=== PATIENT | female | born 1980 | race Caucasian/White ===

== ENCOUNTER 2019-11-29 16:22 | Emergency (ER) | payer MEDICAID, SELFPAY ==
--- NOTE | 2019-11-29 16:27 | W.ED.HA ---
HPI - Headache General: Chief Complaint: Headache Stated Complaint: HEADACHE W/MEMORY LOSS Time Seen by Provider: 11/29/19 16:24 Source: patient and EMS Mode of arrival: EMS Limitations: no limitations History of Present Illness: HPI Narrative: 38-year-old female states she has a history of migraines. Patient states she went to [facility] at 3:00 and has a period of about 5 to 10 minutes where she does not member what she did. She states she now has a headache that is like her migraines. She denies any memory issues currently. She denies any vision issues and denies any other neuro deficits. Patient states she has not had this happen before with her migraines. Denies any vomiting. She denies any fever. MD elicited complaint: headache and migraine Associated symptoms: Deny chest pain, fever(s), nausea, rash or vomiting Review of Systems Const: Denies: fever(s), chills, body aches or change in appetite Eyes: Denies: blurry vision or eye discomfort ENMT: Denies: throat pain or dental pain Card: Denies: chest pain Resp: Denies: dyspnea GI: Denies: abdominal pain, nausea, vomiting or diarrhea : Denies: dysuria Musc: Denies: neck pain or back pain Skin/Breast: Denies: rash Neuro: Reports: headache(s) Psych: Denies: depression Edilberto/Lymph: Denies: easy bruising All/Imm: Denies: urticaria Physical Exam Const: COMMON NORMALS: no acute distress, patient oriented x3 and healthy appearing HENMT: COMMON NORMALS: normocephalic and atraumatic HEAD & SCALP: normocephalic and atraumatic Eye: COMMON NORMALS: Equal, round and reactive pupils present and EOMs intact bilaterally PUPIL: Yes Equal, round and reactive pupils present Neck/C-Spine: COMMON NORMALS: full ROM and supple Chest: COMMONS NORMALS: normal inspection of the chest and normal palpation of entire chest wall Resp: COMMON NORMALS: normal respiratory effort, No retractions, No use of accessory muscles and clear to auscultation bilaterally AUSCULTATION: clear to auscultation bilaterally Cardio: COMMON NORMALS: regular rate, regular rhythm and No murmurs present (Cardio) RATE: regular rate RHYTHM: regular rhythm GI: COMMON NORMALS: Normal to inspection, nondistended, normoactive bowel sounds present, Soft to palpation, non-tender and no masses PALPATION: Yes Soft to palpation Extremity: COMMON NORMALS: normal to inspection and full ROM Neuro: COMMON NORMALS: patient oriented x3, moves all extremities and no focal motor deficits Psych: COMMON NORMALS: mental status grossly normal, Normal thought process present and cooperative THOUGHT PROCESS: Normal thought process present Skin: COMMON NORMALS: no rashes or lesions noted and no wounds GENERAL SKIN EXAM: no rashes or lesions noted Course Vital Signs: Vital signs: Vital Signs Temperature 98.6 F 11/29/19 16:31 Pulse Rate 60 11/29/19 16:36 Respiratory Rate 16 11/29/19 16:36 Blood Pressure 106/64 11/29/19 16:31 Pulse Oximetry 99 11/29/19 16:36 MDM - Headache MDM Narrative: Medical decision making narrative: 38-year-old presents here with headache that is likely a migraine headache. Her headache is much improved here and resolved after Reglan and Benadryl. Patient's head CT here is normal and she is no signs of subarachnoid hemorrhage. Patient's memory loss is likely or from her headache. She is stable for discharge and return if worsening. She is back to her baseline. Imaging Data^: CT Head: Attestation: I personally reviewed and interpreted this imaging study as follows: Radiologist's impression: [address] [address] [address] Scan Report Signed Patient: Lucero Martinez Unit #: [id number] : 1980 Age/Sex: 38 / F ADM Date: 11/29/19 Loc: ER Room/Bed: Attending Dr: Ordering Provider/Ordering MD: Kelly Dao MD Date of Service: 11/29/19 Procedure(s): CT head wo con* [id number] Accession Number(s): [id number] Report Number: [id number] PROCEDURE INFORMATION: Exam: CT Head Without Contrast Exam date and time: 11/29/2019 4:28 PM Age: 38 years old Clinical indication: Pain; Headache not specified; Patient HX: C/O new onset FORDE w HX of migraines TECHNIQUE: Imaging protocol: Computed tomography of the head without contrast. Radiation optimization: All CT scans at this facility use at least one of these dose optimization techniques: automated exposure control; mA and/or kV adjustment per patient size (includes targeted exams where dose is matched to clinical indication); or iterative reconstruction. COMPARISON: No relevant prior studies available. RADIATION DOSE METRICS: Total DLP (mGy-cm): 1380.2 FINDINGS: Brain: Normal. No hemorrhage. Unremarkable white matter. No mass effect. Ventricles: Normal. No ventriculomegaly. Bones/joints: Unremarkable. No acute fracture. Sinuses: Mild mucosal thickening in the ethmoid and sphenoid sinuses. Mastoid air cells: Visualized mastoid air cells are well aerated. Soft tissues: Unremarkable. CT/CT head wo con* [id number] IMPRESSION: No intracranial abnormality identified. Discharge Plan Discharge Patient Disposition: Home Clinical Impression: Headache Qualifiers: Headache type: unspecified Headache chronicity pattern: acute headache Intractability: not intractable Qualified Code(s): R51 - Headache Condition: Stable Discharge Orders: Discharge Order (Routine); Ordered 11/29/19 Ordered By: Kelly Dao Referrals: Asif Vargas DO [Primary Care Provider] - 1-3 days Discharge Diet: Advance as tolerated Discharge Activity: Resume usual activity Patient Instructions: Acute Headache (ED) Coding Level of Care Code ED Rn Radiology for Chg Fwd Exam Comprehensive
[2019-11-29 16:31] VITALS: BP 106/64; PULSE 81; RESP 16; TEMP 37; O2SAT 100
[2019-11-29 16:36] VITALS: PULSE 60; RESP 16; O2SAT 99
[2019-11-29] MEDS: metoclopramide 5 mg/mL SDV 2 mL 10 MG IVP (16:50)
[2019-11-29] MEDS: diphenhydrAMINE 50 mg/mL SDV 1mL IVP (16:50)
[2019-11-29] MEDS: ketorolac 30 mg/mL INJ 15 MG IVP (17:14)
[2019-11-29 17:50] VITALS: BP 103/65; PULSE 62; RESP 16; O2SAT 99
== END 2019-11-29 17:57 | disposition home or self-care (01) ==
PROVIDERS: Emergency Provider Emergency Medicine; PCP Family Medicine
DX: R51 Headache (principal)
CPT/HCPCS: 12345; 70450; 96374; 96375; 99283; J1200; J1885; J2765

== ENCOUNTER → 2020-02-05 13:04 | Outpatient (BNVA) | payer MEDICAID, SELFPAY | PROVIDERS: PCP Family Medicine; Visit Provider Nurse Practitioner Family | DX: Z11.59 Encounter for screening for other viral diseases (principal) | CPT/HCPCS: 87635 ==

== ENCOUNTER → 2020-07-02 12:26 | Outpatient (BNVA) | payer MEDICAID, SELFPAY | PROVIDERS: PCP Nurse Practitioner Family; Visit Provider Specialist | DX: R56.9 Unspecified convulsions (principal) | CPT/HCPCS: 95816 ==

== ENCOUNTER 2020-07-24 08:29 | Outpatient (CLI) | payer MEDICAID, SELFPAY ==
--- NOTE | 2020-07-24 08:36 | MR_ITS ---
WS: [id number] MRI BRAIN WITHOUT CONTRAST HISTORY: SEIZURE LIKE ACTIVITY COMPARISON: None available. TECHNIQUE: Diffusion imaging, multiplanar T1, T2 and FLAIR imaging obtained. High-resolution imaging through the temporal bones. No evidence for acute infarct or hemorrhage. Griffiths-white matter differentiation is normal. Symmetric a ppearance of the temporal lobes and hippocampal formations. No mesial temporal sclerosis. Normal appe arance the distribution of the griffiths and white matter. No remote or acute infarcts are volume loss. Ventricles and extra-axial spaces are normal. No inferior displacement of cerebellar tonsils. The sella turcica and pituitary gland are unremarkabl e. Posterior fossa is also unremarkable. Dural venous sinuses and [place] demonstrate no abnormality on this unenhanced studies. Paranasal sinuses: Mild mucoperiosteal thickening maxillary sinuses. Moderate mucoperiosteal thickeni ng in the anterior ethmoid air cells. Mastoid air cells: Normal. Calvarium and scalp: Intact. MR/MR head wo con* [id number] IMPRESSION: 1. Unremarkable noncontrast MRI brain. 2. Mild ethmoid and maxillary sinus disease without air-fluid levels.
== END 2020-07-24 08:30 | disposition home or self-care (01) ==
LOC: RADSHAW 08:33
PROVIDERS: PCP Nurse Practitioner Family; Visit Provider Nurse Practitioner Family
DX: R56.9 Unspecified convulsions (principal); J32.2 Chronic ethmoidal sinusitis; J01.00 Acute maxillary sinusitis, unspecified
CPT/HCPCS: 70551

== ENCOUNTER 2021-04-05 10:23 | Emergency (ER) | payer MEDICAID, SELFPAY ==
[2021-04-05 10:43] VITALS: BP 126/67; PULSE 67; RESP 13; TEMP 36.7; O2SAT 100; BMI 18.6
[2021-04-05 10:47] VITALS: BP 119/74; PULSE 65; RESP 18; O2SAT 100
[2021-04-05 10:48] VITALS: RESP 15
--- NOTE | 2021-04-05 11:12 | ED_ITS ---
HPI - Seizure General: Chief Complaint: Seizure Stated Complaint: SEIZURE Time Seen by Provider: 04/05/21 10:26 History of Present Illness: HPI Narrative: 40-year-old female presents emergency room complaining of of headache as well as seizure-like activity. Yin esteves previously had episodes where they were concerned about seizure and she had a follow-up EEG which was unremarkable had a follow-up on with neurology then in November of this year that time she was complaining of a headache they treated the headache problem she is not had any problems since no recurrence of seizures she was advised not to drive. The headache seemed to precede the episode today. Brief loss of consciousness but no real postictal symptoms. Patient does take Xanax daily. MD complaint: possible seizure Onset (ago): minute(s) Description of Episode: loss of consciousness Witnessed: Yes - by Bystander Trauma: No Seizure History: No Place: Home Associated symptoms: Deny chest pain, chills, confusion, cough, diaphoresis, fever(s), anorexia, malaise, rash, short of breath, syncope or weakness Treatments prior to arrival: none Review of Systems Const: Denies: fever(s), chills, malaise or diaphoresis ENMT: Denies: throat pain, ear or mastoid pain, nasal discharge or nasal congestion Card: Denies: chest pain or syncope Resp: Denies: dyspnea, productive cough or non-productive cough GI: Denies: abdominal pain, nausea, vomiting, hematemesis, coffee ground emesis, diarrhea, constipation, bloating, hematochezia or melena : Denies: flank pain, difficulty voiding, dysuria, urinary frequency or urinary urgency Skin/Breast: Denies: rash or pruritus Neuro: Denies: confusion PFSH ED PFSH: Social History Smoking and tobacco status: current every day smoker Female Reproductive History: Date of last menstrual period: 03/14/21 Physical Exam Const: COMMON NORMALS: no acute distress GENERAL APPEARANCE: cooperative and comfortable ORIENTATION/CONSCIOUSNESS: Yes awake, Yes oriented to person, Yes oriented to place and Yes oriented to time HENMT: COMMON NORMALS: normocephalic, atraumatic and hearing grossly normal bilaterally HEAD & SCALP: normocephalic and atraumatic Neck/C-Spine: COMMON NORMALS: no JVD Resp: COMMON NORMALS: normal respiratory effort, No retractions, No use of accessory muscles and clear to auscultation bilaterally AUSCULTATION: clear to auscultation bilaterally Cardio: COMMON NORMALS: no JVD, regular rate, regular rhythm and No murmurs present (Cardio) RATE: regular rate RHYTHM: regular rhythm GI: COMMON NORMALS: Soft to palpation and No hepatosplenomegaly present AUSCULTATION: Yes normoactive bowel sounds PALPATION: Yes Soft to palpation, No Tenderness to palpation present (GI), No Guarding due to palpation present (GI) and Yes No hepatosplenomegaly present Extremity: COMMON NORMALS: normal to inspection, capillary refill normal, no clubbing, cyanosis or edema, no calf tenderness and no pedal edema Neuro: SENSORIUM/ORIENTATION: Yes oriented to person, Yes oriented to place and Yes oriented to time Skin: COMMON NORMALS: no rashes or lesions noted GENERAL SKIN EXAM: no rashes or lesions noted Course Vital Signs: Vital signs: Vital Signs Temperature 98.0 F 04/05/21 10:43 Pulse Rate 68 04/05/21 14:29 Respiratory Rate 16 04/05/21 14:29 Blood Pressure 106/52 04/05/21 14:29 Pulse Oximetry 98 04/05/21 14:29 MDM - Seizure MDM Narrative: Medical decision making narrative: Migraines seems to be her bigger issue at this point. She did improve with medications. She reports however with elevated consider previous work-up was negative including EEG. I do not think starting her on any antiseizure medication at this point with a normal EEG would be helpful. Recommend that she get back in to see neurology. Discharge home for now no change in medications. Labs reviewed. Lab Data: Labs: Lab Results 04/05/21 04/05/21 11:30 11:30 WBC 6.8 10^3/uL 10^3/ uL (4.0-10.0) RBC 4.29 10^6/uL 10^6 /uL (4.1-5.3) Hgb 13.6 g/dL g/dL (11.5-15.3) Hct 39.7 % % (37.0-47.0) MCV 92.5 fl fl (81-99) MCH 31.7 pg pg (28.0-34.0) MCHC 34.3 g/dL g/dL (30.0-36.0) RDW 13.1 % % (12.1-15.1) Plt Count 280 10^3/cmm 10^3 /cmm (130-400) MPV 9.8 fL fL (7.4-10.4) Neut % (Auto) 84.4 % % Lymph % (Auto) 12.0 % % [place] % (Auto) 2.7 % % Eos % (Auto) 0.3 % % Baso % (Auto) 0.3 % % Neut # (Auto) 5.70 10^3/uL 10^3 /uL (1.8-7.7) Lymph # (Auto) 0.8 10^3/uL 10^3/ uL (0.8-4.8) [place] # (Auto) 0.2 10^3/uL 10^3/ uL (0.2-0.9) Eos # (Auto) 0.0 10^3/uL 10^3/ uL (0.0-0.8) Baso # (Auto) 0.0 10^3/uL 10^3/ uL (0.0-0.1) Nucleated RBC % (a uto) 0 % % Nucleated RBCs # 0.0 /100WBC /100W BC Sodium 138 mmol/L mmol/L (136-145) Potassium 3.9 mmol/L mmol/L (3.5-5.1) Chloride 106 mmol/L mmol/L (98-107) Carbon Dioxide 17 mmol/L L mmol/ L (22-29) Anion Gap 18.9 (5-19) BUN 10 mg/dL mg/dL (6-20) Creatinine 0.6 mg/dL mg/dL (0.5-0.9) GFR Calculation 111.9 mL/min mL/m in (90-130) Glucose 100 mg/dL mg/dL (65-115) Calculated Osmolal ity 285 mOsm/kg mOsm/ kg (285-295) Calcium 8.2 mg/dL L mg/dL (8.5-10.5) Discharge Plan Discharge Patient Disposition: Home Clinical Impression: Migraine, Generalized seizure Condition: Stable Prescriptions: No Action Xanax 1 mg Tablet 1 mg PO Q8H PRN (Reason: Anxiety) RF: 0 Amoxil 875 mg Tablet 875 mg PO BID RF: 0 ibuprofen 200 mg Tablet 400 mg PO Q4H PRN (Reason: Pain) RF: 0 Discharge Orders: Discharge ED (Routine); Ordered 04/05/21 Ordered By: Galo Conte Referrals: Daily Hope FNP [Primary Care Provider] - Patient Instructions: Opioid Safety Activity Restrictions/Additional Instructions: Follow-up with your primary care doctor and with neurology. Coding Level of Care Code ED Music Industry Intern for Sundayg Fwd Exam Comprehensive
[2021-04-05] MEDS: ketorolac 30 mg/mL INJ IVP (11:24)
[2021-04-05] MEDS: promethazine 25 mg/mL SDV 1 mL IM (11:24)
[2021-04-05] MEDS: sodium chloride 0.9% 1,000 ML 999 ML IV (11:24)
[2021-04-05 11:33] LABS: Basophils % 0.3 %; Eosinophils % 0.3 %; Hematocrit 39.7 % (37.0-47.0); Hemoglobin 13.6 g/dL (11.5-15.3); Lymphocytes # 0.8 10^3/uL (0.8-4.8); Mean Corpuscular HGB Conc 34.3 g/dL (30.0-36.0); Mean Corpuscular Hemoglobin 31.7 pg (28.0-34.0); Mean Corpuscular Volume 92.5 fl (81-99); Mean Platelet Volume 9.8 fL (7.4-10.4); Monocytes # 0.2 10^3/uL (0.2-0.9); Monocytes % 2.7 %; Neutrophils % 84.4 %; Nucleated Red Blood Cells % 0 %; Platelet Count 280 10^3/cmm (130-400); Red Blood Count 4.29 10^6/uL (4.1-5.3); Red Cell Distribution Width 13.1 % (12.1-15.1); White Blood Count 6.8 10^3/uL (4.0-10.0)
[2021-04-05 11:57] LABS: Anion Gap 18.9 (5-19); Blood Urea Nitrogen 10 mg/dL (6-20); Calcium 8.2 mg/dL (8.5-10.5); Carbon Dioxide 17 mmol/L (22-29); Chloride 106 mmol/L (98-107); Glomerular Filtration Rate 111.9 mL/min (90-130); Glucose 100 mg/dL (65-115); Osmolality Calculated 285 mOsm/kg (285-295); Potassium 3.9 mmol/L (3.5-5.1); Sodium 138 mmol/L (136-145)
[2021-04-05 12:48] VITALS: BP 101/68; PULSE 70; RESP 19; O2SAT 97
[2021-04-05] MEDS: morphine 4 mg/mL SDV 1 mL IVP (13:41)
[2021-04-05] MEDS: diphenhydrAMINE 50 mg/mL SDV 1mL 25 MG IVP (13:41)
[2021-04-05 14:00] VITALS: BP 106/52; PULSE 68; RESP 16; O2SAT 98
[2021-04-05 14:29] VITALS: BP 106/52; PULSE 68; RESP 16; O2SAT 98
--- NOTE | 2021-04-08 08:03 | PC.SOCIAL ---
Addendum entered by Dee Mason RN 04/08/21 08:13: Patient returned call and this nurse let her know that Neurology clinic will try to move up appt however in order for them to appropriately treat and manage medications to control seizures it is extremely important that she attend her appointments. She indicates she has a friend that is able to transport her and will attend. Addendum entered by Dee Mason RN 04/08/21 08:05: unable to reach patient was planning on educating her on the importance of follow up to assist with medication management to control seizueres however received a message but did not have patient name listed therefore did not leave message. Original Note: ED referral received by Dr Conte for Neurology for Seizures. Sent email this am and per Kae in the clinic pt has an appt scheduled she will reach out to patient and try to get appt moved up however, patient has not shown up for multiple other appointments at this clinic so not sure she will attend.
--- NOTE | 2021-04-08 12:16 | DCPLANNER ---
Addendum entered by Deb Leyva 05/17/21 08:03: Patient had an appointment scheduled for 05.10.21 with neurology - patient did not attend appointment. Original Note: Patient has a follow up appointment scheduled for Monday, May 10, 2021 at 10:[address] Lorenzo. Clinic will call patient with appointment information.
== END 2021-04-05 14:29 | disposition home or self-care (01) ==
PROVIDERS: Emergency Provider Family Medicine; PCP Nurse Practitioner Family
DX: G43.909 Migraine, unspecified, not intractable, without status migrainosus (principal); G40.409 Other generalized epilepsy and epileptic syndromes, not intractable, without status epilepticus
CPT/HCPCS: 80048; 85025; 96361; 96372; 96374; 96375; 99284; J1200; J1885; J2270; J2550; J7030

== ENCOUNTER 2021-05-19 14:01 | Emergency (ER) | payer MEDICAID, SELFPAY ==
[2021-05-19 14:24] VITALS: BP 128/77; PULSE 65; RESP 16; TEMP 36.8; O2SAT 100; BMI 19.8
--- NOTE | 2021-05-19 15:26 | USCV_ITS ---
Lucero Martinez Age: 40 Gender: F : 1980 Exam Date: 05/19/2021 15:49 Ordering Phys: Kae Huerta Technologist: BONNIE [place] [facility] [place]: RT arm swelling and pain x 2-3 days. No known trauma. Hx sezeires x 4 for last 1-2 years. No hx DVT. HISTORY: RT arm swelling and pain x 2-3 days. No known trauma. Hx sezeires x 4 for last 1-2 years. No hx DVT. PROCEDURES: Venous duplex imaging was performed in only the right upper extremity. The following venous structures were evaluated: internal jugular vein, subclavian vein, axillary vein, and brachial veins. In addition, the basilic vein, cephalic vein, radial vein, and ulnar vein were evaluated. Serial compression, augmentation maneuvers, and spectral Doppler flow evaluation were performed. . FINDINGS: Acute DVT is seen, isolated to the RIGHT subclavian, the RIGHT axillary, and the cephalic portion of the RIGHT Basilic tod. These areas are incompressible with no spontaneous or augmented flow. CONCLUSIONS Occlusive Acute DVT RIGHT subclavian, RIGHT axillary, and thrombus in the cephalic vein above the elbow. Remainder of RUE veins are patent. Modesto Kapoor MD (Electronically Signed) Final Date: 20 May 2021 09:40 S
--- NOTE | 2021-05-19 15:49 | ED_ITS ---
Documented by User: DIVINA Alvarado 05/24/21 17:27 HPI - Extremity Problem General: Chief complaint: General Medical Stated complaint: SENT FROM [facility], POSSIBLE BLOOD CLOT IN ARM Time Seen by Provider: 05/19/21 15:37 Source: patient Mode of arrival: ambulatory Limitations: no limitations History of Present Illness: Patient is a 40-year-old female who presents to ED today with complaint of right arm swelling over the past 2 days. She states pain and swelling began abruptly. She has not had any injury or trauma to the extremity. No recent surgeries. No prolonged periods of inactivity. No hormonal medications. She has no history of previous DVTs. No known blood disorder/clotting disorders. Patient states she was sent here from [facility] for blood clot rule out. She does not complain of shortness of breath, difficulty breathing, or chest pains. MD Complaint: extremity pain and extremity swelling Onset (ago): day(s) Pain Consistency: constant Location: right and upper extremity Associated symptoms: Deny chest pain, fever(s) or rash Review of Systems Const: Denies: fever(s), chills, body aches, fatigue or malaise Card: Denies: chest pain, palpitations, irregular heart rhythm, edema, lightheadedness, syncope or pre-syncope Resp: Denies: dyspnea GI: Denies: abdominal pain Musc: Reports: extremity pain and extremity swelling; Denies: neck pain, back pain, joint pain or joint swelling Skin/Breast: Denies: rash Neuro: Denies: headache(s), numbness in extremities, weakness in extremities or sensory changes PFS ED PFSH: Social History Smoking and tobacco status: current every day smoker Female Reproductive History: Date of last menstrual period: 03/14/21 Physical Exam Const: COMMON NORMALS: no acute distress, average body habitus, patient oriented x3, no limitations, healthy appearing, alert and well nourished HENMT: COMMON NORMALS: normocephalic and atraumatic HEAD & SCALP: normocephalic and atraumatic Resp: COMMON NORMALS: normal respiratory effort and clear to auscultation bilaterally AUSCULTATION: clear to auscultation bilaterally Cardio: COMMON NORMALS: regular rate and regular rhythm RATE: regular rate RHYTHM: regular rhythm Extremity: COMMON NORMALS: full ROM and capillary refill normal OTHER: pt has significant swelling to her entire R UE when compared to L; she has normal brachial/radial pulses and normal cap refill; extremity is not cool to the touch; no redness/warmth/cellulitis noted Neuro: COMMON NORMALS: patient oriented x3 SENSORIUM/ORIENTATION: Yes alert Course Consultations: Consultation #1: Dr. Ball-will come evaluate patient; he recommends CT chest/abdomen/pelvis to evaluate for malignancy; possible hem/onc consult once scan has returned Vital Signs: Vital signs: Vital Signs Temperature 98.2 F 05/19/21 14:24 Pulse Rate 74 05/19/21 19:20 Respiratory Rate 18 05/19/21 19:20 Blood Pressure 124/81 05/19/21 19:20 Pulse Oximetry 99 05/19/21 19:20 MDM - Extremity (Nontraumatic) Medical Decision Making Patient has a DVT to her subclavian and axillary veins. Patient has no risk factors for DVT and this is unprovoked. Spoke to Dr. Wright who recommended speaking to hospitalist. I spoke to Dr. Ball who will come evaluate patient. He did recommend CT imaging. Patient was started on Lovenox here. Lab Data : 05/19/21 17:03 05/19/21 17:03 Radiology Impressions Chest/Abdomen/Pelvis CT 05/19/21 16:50 IMPRESSION: No evidence of malignancy. IMPRESSION: No evidence of malignancy. Laboratory Results WBC 10.9 10^3/uL (4.0-10.0) H 05/19/21 17:03 RBC 4.20 10^6/uL (4.1-5.3) 05/19/21 17:03 Hgb 13.5 g/dL (11.5-15.3) 05/19/21 17:03 Hct 41.0 % (37.0-47.0) 05/19/21 17:03 MCV 97.6 fl (81-99) 05/19/21 17:03 MCH 32.1 pg (28.0-34.0) 05/19/21 17:03 MCHC 32.9 g/dL (30.0-36.0) 05/19/21 17:03 RDW 13.7 % (12.1-15.1) 05/19/21 17:03 Plt Count 258 10^3/cmm (130-400) 05/19/21 17:03 MPV 10.0 fL (7.4-10.4) 05/19/21 17:03 Neut % (Auto) 91.4 % 05/19/21 17:03 Lymph % (Auto) 6.9 % 05/19/21 17:03 [place] % (Auto) 0.8 % 05/19/21 17:03 Eos % (Auto) 0.0 % 05/19/21 17:03 Baso % (Auto) 0.4 % 05/19/21 17:03 Neut # (Auto) 9.93 10^3/uL (1.8-7.7) H 05/19/21 17:03 Lymph # (Auto) 0.8 10^3/uL (0.8-4.8) 05/19/21 17:03 [place] # (Auto) 0.1 10^3/uL (0.2-0.9) L 05/19/21 17:03 Eos # (Auto) 0.0 10^3/uL (0.0-0.8) 05/19/21 17:03 Baso # (Auto) 0.0 10^3/uL (0.0-0.1) 05/19/21 17:03 Nucleated RBC % (auto) 0 % 05/19/21 17:03 Nucleated RBCs # 0.0 /100WBC 05/19/21 17:03 PT 13.70 SECONDS (12.1-14.9) 05/19/21 17:03 INR 1.02 (0.8-1.2) 05/19/21 17:03 APTT 30.3 SECONDS (23.9-36.7) 05/19/21 17:03 Sodium 137 mmol/L (136-145) 05/19/21 17:03 Potassium 4.3 mmol/L (3.5-5.1) 05/19/21 17:03 Chloride 106 mmol/L (98-107) 05/19/21 17:03 Carbon Dioxide 20 mmol/L (22-29) L 05/19/21 17:03 Anion Gap 15.3 (5-19) 05/19/21 17:03 BUN 7 mg/dL (6-20) 05/19/21 17:03 Creatinine 0.6 mg/dL (0.5-0.9) 05/19/21 17:03 GFR Calculation 111.9 mL/min (90-130) 05/19/21 17:03 Glucose 117 mg/dL (65-115) H 05/19/21 17:03 Calculated Osmolality 283 mOsm/kg (285-295) L 05/19/21 17:03 Calcium 8.9 mg/dL (8.5-10.5) 05/19/21 17:03 Total Bilirubin 0.2 mg/dL (0.15-1.2) 05/19/21 17:03 AST 15 U/L (0-32) 05/19/21 17:03 ALT 12 U/L (0-33) 05/19/21 17:03 Alkaline Phosphatase 66 IU/L (35-105) 05/19/21 17:03 Total Protein 6.6 g/dL (6.6-8.7) 05/19/21 17:03 Albumin 4.1 g/dL (3.5-5.2) 05/19/21 17:03 Globulin 2.5 g/dL (1.3-4.6) 05/19/21 17:03 HCG, Qual Negative (Negative) 05/19/21 17:03 Discharge Plan Discharge Patient Disposition: Home Clinical Impression: DVT of upper extremity (deep vein thrombosis) Qualifiers: Affected thrombotic vein of extremity: unspecified vein of extremity Chronicity: acute Laterality: right Qualified Code(s): I82.621 - Acute embolism and thrombosis of deep veins of right upper extremity Condition: Stable Prescriptions: New Eliquis DVT-PE Treat 30D Start 5 mg (74 tabs) tablets,dose pack See Rx Instructions .ROUTE .COMPLEX Qty: 74 0RF Rx Instructions: orally per package directions No Action Xanax 1 mg Tablet 1 mg PO Q8H PRN (Reason: Anxiety) 0RF Amoxil 875 mg Tablet 875 mg PO BID 0RF ibuprofen 200 mg Tablet 400 mg PO Q4H PRN (Reason: Pain) 0RF Discharge Orders: Discharge ED (Routine); Ordered 05/19/21 Ordered By: Solomon Diallo Referrals: Daily Hope FNP [Primary Care Provider] - Discharge Diet: Usual diet Discharge Activity: Increase activity as tolerated Patient Instructions: Deep Vein Thrombosis (ED) Activity Restrictions/Additional Instructions: Home and rest. Drink plenty of water. Take Eliquis as directed. You need to follow-up in 2 weeks with primary care or internal medicine for recheck. Return to the ER for severe chest pain, increased shortness of breath, or new concerns. Sign Out Sign Out Data: Patient Sign Out occurred on 05/19/21 at 17:11. Patient's care was discussed, and care was transferred from to Solomon Diallo. Post-Handoff Eval: Patient is resting well and in no acute distress at this time. Right arm is swollen with noticeable vascular congestion in the extremity. Pulses are intact. Patient reports no prior blood clots that she is aware. We are waiting CT of the chest and abdomen. CT of the chest and abdomen indicated no malignancy. I discussed with Dr. Ball who recommended that we talk with the vascular surgeon for further recommendations. Patient did not want to wait for response from vascular surgeon after waiting an hour, I reviewed this with Dr. Dao who recommended patient follow-up with internal medicine. Case management was requested for follow-up appointment. Patient will be kept on Eliquis per DVT protocol. Vascular surgeon, Dr. Marie, called back and we discussed patient's case he recommended no intervention therapy at this time, did suggest testing for coagulation abnormalities and continuation of anticoagulation therapy for 3 to 6 months. Coding Level of Care Code ED Import Export Coordinator for Chg Fwd Exam Detailed Medical Decision Making Moderate Complexity Time Spent (min) 45 Documented by User: DASHA Basilio 05/19/21 21:34 HPI - Extremity Problem General: Chief complaint: General Medical Stated complaint: SENT FROM [facility], POSSIBLE BLOOD CLOT IN ARM Time Seen by Provider: 05/19/21 15:37 PFSH ED PFSH: Social History Smoking and tobacco status: current every day smoker Course ED course: 1734, patient is resting well. Patient reports a Dr. Ball has been to see her and we are awaiting CT of the chest abdomen pelvis for further evaluation. 1834, reviewed CT of abdomen chest with Dr. Ball showing that it had no sign of cancer at this time. He recommended we talk with a vascular surgeon to rule out any emergent therapy. I reviewed this with patient who agreed with plan. Patient was prescribed 10 mg of Eliquis. 1929, I am still awaiting callback from vascular at [facility]. Patient wished to be discharged to home and will return if needed. Patient was in no acute distress, denied any chest pain or difficulty breathing. I reviewed this with Dr. Dao who feels patient probably can be just treated as outpatient for DVT with need for follow-up. 2129, Dr. Marie from [facility] in [facility], vascular surgeon, at this time he did not recommend any intervention therapy. Recommended follow-up for factor/coagulation abnormalities. Case management was requested to submit referral to hematology regarding these concerns. Vital Signs: Vital signs: Vital Signs Temperature 98.2 F 05/19/21 14:24 Pulse Rate 74 05/19/21 19:20 Respiratory Rate 18 05/19/21 19:20 Blood Pressure 124/81 05/19/21 19:20 Pulse Oximetry 99 05/19/21 19:20 MDM - Extremity (Nontraumatic) Lab Data : 05/19/21 17:03 05/19/21 17:03 Radiology Impressions Chest/Abdomen/Pelvis CT 05/19/21 16:50 IMPRESSION: No evidence of malignancy.
--- NOTE | 2021-05-19 16:50 | CTR_ITS ---
PROCEDURE INFORMATION: Exam: CT Chest With Contrast; Diagnostic Exam date and time: 05/19/2021 4:50 PM Age: 40 years old Clinical indication: Abdominal pain; Right-sided; Prior surgery; Surgery type: Thyroid, endo; Additional info: Subclavian dvt; R/O malignancy TECHNIQUE: Imaging protocol: Diagnostic computed tomography of the chest with contrast. Radiation optimization: All CT scans at this facility use at least one of these dose optimization techniques: automated exposure control; mA and/or kV adjustment per patient size (includes targeted exams where dose is matched to clinical indication); or iterative reconstruction. Contrast material: OMNI 300; Contrast volume: 75 ml; Contrast route: INTRAVENOUS (IV); COMPARISON: No relevant prior studies available. RADIATION DOSE METRICS: Total DLP (mGy-cm): 1037.37 FINDINGS: Thyroid: Right hemithyroidectomy. Lungs: Unremarkable. No consolidation. No masses. Pleural spaces: Unremarkable. No pneumothorax. No pleural effusion. Heart: Unremarkable. No cardiomegaly. No pericardial effusion. Aorta: Unremarkable. No aortic aneurysm. Lymph nodes: Unremarkable. No enlarged lymph nodes. Bones/joints: No acute fracture. No aggressive osseous lesions. Soft tissues: Unremarkable. PROCEDURE INFORMATION: Exam: CT Abdomen And Pelvis With Contrast Exam date and time: 05/19/2021 4:50 PM Age: 40 years old Clinical indication: Abdominal pain; Right-sided; Prior surgery; Surgery type: Thyroid, endo; Additional info: Subclavian dvt; R/O malignancy TECHNIQUE: Imaging protocol: Computed tomography of the abdomen and pelvis with contrast. Radiation optimization: All CT scans at this facility use at least one of these dose optimization techniques: automated exposure control; mA and/or kV adjustment per patient size (includes targeted exams where dose is matched to clinical indication); or iterative reconstruction. Contrast material: OMNI 300; Contrast volume: 75 ml; Contrast route: INTRAVENOUS (IV); COMPARISON: No relevant prior studies available. RADIATION DOSE METRICS: Total DLP (mGy-cm): 1037.37 FINDINGS: Liver: Focal fat deposition adjacent to the falciform ligament. No mass. Gallbladder and bile ducts: Normal. No calcified stones. No ductal dilation. Pancreas: Normal. No ductal dilation. Spleen: Normal. No splenomegaly. Adrenal glands: Normal. No mass. Kidneys and ureters: Normal. No hydronephrosis. Stomach and bowel: Unremarkable. No obstruction. No mucosal thickening. Appendix: No evidence of appendicitis. Intraperitoneal space: Unremarkable. No free air. No significant fluid collection. Vasculature: Unremarkable. No abdominal aortic aneurysm. Lymph nodes: Unremarkable. No enlarged lymph nodes. Urinary bladder: Unremarkable as visualized. Reproductive: Unremarkable as visualized. Bones/joints: No acute fracture. No aggressive osseous lesions. Soft tissues: Unremarkable. CT/CT chest abd pel w con* IMPRESSION: No evidence of malignancy. IMPRESSION: No evidence of malignancy.
[2021-05-19] MEDS: enoxaparin 60 mg/0.6 mL Syringe 50 MG SUBCUT (17:06)
[2021-05-19 17:12] LABS: Basophils % 0.4 %; Hemoglobin 13.5 g/dL (11.5-15.3); Lymphocytes # 0.8 10^3/uL (0.8-4.8); Lymphocytes % 6.9 %; Mean Corpuscular HGB Conc 32.9 g/dL (30.0-36.0); Mean Corpuscular Hemoglobin 32.1 pg (28.0-34.0); Mean Corpuscular Volume 97.6 fl (81-99); Monocytes # 0.1 10^3/uL (0.2-0.9); Monocytes % 0.8 %; Neutrophils # 9.93 10^3/uL (1.8-7.7); Neutrophils % 91.4 %; Nucleated Red Blood Cells % 0 %; Platelet Count 258 10^3/cmm (130-400); Red Cell Distribution Width 13.7 % (12.1-15.1); White Blood Count 10.9 10^3/uL (4.0-10.0)
[2021-05-19 17:27] LABS: INR 1.02 (0.8-1.2)
[2021-05-19 17:29] LABS: Partial Thromboplastin Time 30.3 SECONDS (23.9-36.7)
[2021-05-19 17:42] LABS: HCG, Serum Qual Negative (Negative)
[2021-05-19 17:43] LABS: Alanine Aminotransferase 12 U/L (0-33); Albumin Level 4.1 g/dL (3.5-5.2); Alkaline Phosphatase 66 IU/L (35-105); Aspartate Amino Transferase 15 U/L (0-32); Blood Urea Nitrogen 7 mg/dL (6-20); Calcium 8.9 mg/dL (8.5-10.5); Carbon Dioxide 20 mmol/L (22-29); Chloride 106 mmol/L (98-107); Globulin 2.5 g/dL (1.3-4.6); Glomerular Filtration Rate 111.9 mL/min (90-130); Glucose 117 mg/dL (65-115); Total Bilirubin 0.2 mg/dL (0.15-1.2); Total Protein 6.6 g/dL (6.6-8.7)
[2021-05-19 17:49] LABS: Osmolality Calculated 283 mOsm/kg (285-295); Sodium 137 mmol/L (136-145)
[2021-05-19 17:51] LABS: Anion Gap 15.3 (5-19); Potassium 4.3 mmol/L (3.5-5.1)
[2021-05-19] MEDS: iohexol 300 mg/mL 100 mL Btl IV (17:57)
[2021-05-19] MEDS: apixaban 5 mg Tablet 10 MG PO (18:58)
[2021-05-19 19:20] VITALS: BP 124/81; PULSE 74; RESP 18; O2SAT 99
--- NOTE | 2021-05-24 15:44 | DCPLANNER ---
Addendum entered by Deb Leyva 05/28/21 07:38: Patient had a follow up appointment scheduled for 05.26.21 with Hermila Keenan - patient did attend appointment. Original Note: it systems manager had message to schedule a follow up appointment for patient with Dr. Mcdonald in Internal Medicine. it systems manager called the office of Dr. Mcdonald, spoke with Anisha, gave clinic patients information. A follow up appointment was scheduled for Wednesday, May 26, 2021 at 9:00 with Hermila Tirado. Clinic will call patient with appointment information.
--- NOTE | 2021-05-28 11:07 | DCPLANNER ---
Addendum entered by Deb Leyva 07/23/21 08:16: patient had a follow up appointment with Dr. Olivier - patient did attend appointment. Addendum entered by Deb Leyva 06/18/21 11:16: Patient has a follow up appointment scheduled with on 06.23.21 at 3:30. Patient aware of appointment. Original Note: payable manager had message to refer patient to hematology. payable manager called [place], research project coordinator for the cancer treatment center, gave clinic patients information. payable manager was told that patients information would be printed and reviewed. Clinic will call patient with appointment information.
== END 2021-05-19 19:22 | disposition home or self-care (01) ==
PROVIDERS: Physician Assistant; Emergency Provider Nurse Practitioner Family; PCP Nurse Practitioner Family
DX: I82.621 Acute embolism and thrombosis of deep veins of right upper extremity (principal); F17.210 Nicotine dependence, cigarettes, uncomplicated
CPT/HCPCS: 71260; 74177; 80053; 84703; 85025; 85610; 85730; 93971; 96372; 99282; J1650; Q9967

== ENCOUNTER 2021-06-23 14:36 | Outpatient (CLI) | payer MEDICAID, SELFPAY ==
--- NOTE | 2021-06-24 07:48 | ONC CON_ITS ---
Dr. Olivier New Patient Note Patient: Lucero Martinez Unit #: [id number]: [id number] Dicatated By: Bhargav Olivier M.D.Date of Visit: Jun 23, 2021 Onc MED New Patient/Consult Referring Physician: FAUSTINO REESE Chief Complaint: Deep vein thrombosis. History of Present Illness: This is a 40 year-old woman with right upper extremity deep vein thrombosis. Sometime in March or April she was diagnosed with COVID-19 virus infection. At the time she was significantly symptomatic with cough, fever, body aches, and severe fatigue. She did not require hospitalization and by her account she did not receive any specific treatment. She had been recovering uneventfully until 05/19/2021 when she was sent to the emergency room from [facility] with a 2-day history of swelling and redness in the right arm. Her venous Doppler showed acute deep vein thrombosis involving the right subclavian and right axillary veins as well as the cephalic portion of the right basilic vein. Her evaluation in the emergency room included CT scans of the chest, abdomen, and pelvis which showed no evidence of other lying malignancy and no other acute findings. She began on anticoagulation with apixaban. She complains that she still has very little energy, though she does take care of her children and she does housework. ECOG score is 1. She does not have good appetite. By her scale there has been no change in her weight, but she has noticed that her close seem to fit more loosely. She has not had any more fever. She does have sweating every night. She has allergy related sinus symptoms. She has not had sore mouth or throat. She does not complain of cough now and her breathing has been okay. She has not had any chest pain, but she has noticed that her heart is sometimes either slow or fast. She has had ongoing complaints of nausea. She does not have acid reflux symptoms. She has been told that she has a gastric ulcer, but I am uncertain if that was ever documented. She does have pain intermittently in the lower abdominal area. Her bowels have been loose and more frequent, but I suspect that is due to the apixaban. She has not been aware of any blood in the stool. Her bladder function has been okay. Lately her periods have been irregular and they have been heavier since she started the apixaban. Her body aches have resolved. She has no other joint or bone pain. She has chronic migraine, and her migraines have been more frequent. Yesterday she had a significant episode of lightheadedness/dizziness. She has no focal neurologic symptoms, she does have a history of seizures, for which she has been seeing Dr. Lorenzo. She has anxiety and depression, for which she recently started fluoxetine 10 mg daily. Past Medical History: Her medical history consists of anxiety, depression, endometriosis, and a seizure disorder. She has a history of COVID-19 virus infection. She apparently has had a suspected gastric ulcer. Past Surgical History: Her surgical/procedural history includes a laparoscopic procedure for endometriosis and right hemithyroidectomy for benign thyroid nodule. Medications: ALPRAZolam 1 Tablet (of 1 mg) Oral daily PRN, ALPRAZolam 1 Tablet (of 1 mg) Oral b.i.d., Eliquis 1 Tablet (of 5 mg) Oral b.i.d., FLUoxetine HCl 1 Capsule (of 10 mg) Oral daily Allergies: No Known Allergies. Social History: Ms. Martinez is . She is not employed outside the home. She has history of smoking 1 pack of cigarettes daily for 15 years. She says she is trying to quit. She does not drink alcohol. Family History: Both parents are living and apparently in good health. A 40-year-old sister has diabetes and she had a major pulmonary embolism in association with a Caesarean section. Her maternal grandmother also has diabetes and she has had a blood clot in her leg. A maternal uncle had testicular cancer. Her maternal grandfather of a brain tumor. Her paternal grandmother had colon cancer and her paternal grandfather of heart attack. Review Of Symptoms: Constitutional - She has very little energy. She still does childcare and housework. Her appetite is not good. She says her weight has not changed by the scale, but she says her clothes seem to fit more loosely. She has not had any more fever. She does have sweating every night. ECOG score is 1, Eyes - She has had intermittent visual changes, ENMT - No hearing loss. She has intermittent tinnitus in the right ear. She has allergy related sinus symptoms. No mouth sores. No sore throat or difficulty swallowing, Hematologic/Lymphatic - No abnormal bruising or bleeding, Respiratory - No shortness of breath. She has no longer having cough. No pleuritic pain or hemoptysis, Cardiovascular - No angina pain. She does have episodes of slow or fast heart rate, Gastrointestinal - She has nausea but no vomiting. She has been told that she has a gastric ulcer. She does not have heartburn or acid reflux. Her bowels have somewhat loose and more frequent. She has not been aware of any blood in the stool or black stools. She has been having pain intermittently in the lower abdominal area, Genitourinary (F) - No dysuria or hematuria. No urinary frequency. No urgency or incontinence. Her periods have been getting irregular, and they have been heavier since she started the Eliquis, Musculoskeletal - Her body aches have improved. She currently is not having any significant joint or bone pain, Integumentary - No skin rash or other skin changes, Neurologic - She has migraine headaches, and those have been getting more frequent. She had an episode of lightheadedness/dizziness yesterday. She has no numbness/tingling or other focal neurologic symptoms. She has seen Dr. Lorenzo for seizures, Psychiatric - She has anxiety and depression. She does not sleep well at night. Vital Signs: Performed on Jun 23, 2021 15:41: 7, 4, 19.31, 1.49 sq.m, 63 in, 98 %, 67 /min, 18 /min, 128/81 mm(hg), 98.3 F (LOW), and 109.0 lbs (HIGH). Physical Examination: Constitutional - She appears to be in good general health, Eyes - Sclerae nonicteric. Conjunctivae clear, ENMT - No lesions noted in the oral cavity, Neck - No mass or thyromegaly, Hematologic/Lymphatic - No cervical, clavicular, or axillary adenopathy, Respiratory - Lungs are clear with good air movement bilaterally, Cardiovascular - Heart rhythm is regular. There is no murmur, gallop, or rub noted, Abdomen - Soft and non-tender. Liver and spleen are not enlarged. There is no abdominal mass or ascites noted and there is no inguinal adenopathy, Back/Spine - No spine or CVA tenderness noted, Extremities - There appears to be no residual swelling in the right arm. There is no lower extremity edema. Pedal pulses are palpable bilaterally, Integumentary - No rashes. No suspicious skin lesions noted, Neurologic - No focal neurologic deficits noted. Problem List: 1. Deep vein thrombosis involving the right upper extremity, occurring in the aftermath of COVID-19 virus infection. 2. Seizure disorder. 3. Question of gastric ulcer. 4. Chronic migraine. 5. History of endometriosis. 6. Anxiety/depression. Problems Addressed with this Encounter and Plan: Patient with a recent episode of deep vein thrombosis involving the right upper extremity. This occurred following symptomatic COVID-19 virus infection. As such, it would be considered a provoked episode of thromboembolism. However, due to the unusual location of the thrombosis and the fact that she also has a family history of thromboembolism, I think at some point she should have a thrombophilia evaluation. That would best be accomplished after she completes 6 months of anticoagulation. As such, she will continue apixaban 5 mg twice daily I will schedule follow-up for further evaluation when she has completed 6 months of treatment. In the meantime, as she is still having significant anxiety and depression, I will have her increase fluoxetine to 20 mg daily. Signed By: Bhargav Olivier M.D. <<Signature on File>>
== END 2021-06-23 14:37 | disposition home or self-care (01) ==
LOC: ONCMED 14:41
PROVIDERS: PCP Nurse Practitioner Family; Visit Provider Internal Medicine Medical Oncology
DX: I82.621 Acute embolism and thrombosis of deep veins of right upper extremity (principal); F41.9 Anxiety disorder, unspecified; F32.A Depression, unspecified; G40.909 Epilepsy, unspecified, not intractable, without status epilepticus; Z79.899 Other long term (current) drug therapy; Z86.16 Personal history of COVID-19
CPT/HCPCS: 99204

== ENCOUNTER → 2021-06-24 08:38 | Outpatient (BNVA) | payer MEDICAID, SELFPAY | PROVIDERS: PCP Nurse Practitioner Family; Referring Provider Nurse Practitioner Family; Visit Provider Specialist | DX: R56.9 Unspecified convulsions (principal); F17.200 Nicotine dependence, unspecified, uncomplicated | CPT/HCPCS: 95816 ==

== ENCOUNTER 2021-10-31 19:48 | Emergency (ER) | payer MEDICAID, SELFPAY ==
[2021-10-31 20:18] VITALS: BP 139/93; PULSE 81; RESP 18; TEMP 37.1; O2SAT 98; BMI 19.8
--- NOTE | 2021-10-31 20:44 | CTR_ITS ---
PROCEDURE INFORMATION: Exam: CT Head Without Contrast Exam date and time: 10/31/2021 9:40 PM Age: 40 years old Clinical indication: Pain; Headache; Migraine; Additional info: Headache vomiting anticoagulated TECHNIQUE: Imaging protocol: Computed tomography of the head without contrast. Radiation optimization: All CT scans at this facility use at least one of these dose optimization techniques: automated exposure control; mA and/or kV adjustment per patient size (includes targeted exams where dose is matched to clinical indication); or iterative reconstruction. COMPARISON: MR head wo con* [id number] 07/24/2020 8:46 AM RADIATION DOSE METRICS: Total DLP (mGy-cm): 1032.88 FINDINGS: Brain: Normal. No hemorrhage. Unremarkable white matter. No mass effect. Cerebral ventricles: No ventriculomegaly. Paranasal sinuses: Visualized sinuses are unremarkable. No fluid levels. Mastoid air cells: Visualized mastoid air cells are well aerated. Bones/joints: Unremarkable. No acute fracture. Soft tissues: Unremarkable. CT/CT head wo con* [id number] IMPRESSION: No acute intracranial abnormality.
[2021-10-31] MEDS: dexamethasone 4 mg/mL INJ 8 MG IVP (21:12)
[2021-10-31] MEDS: ketorolac 30 mg/mL INJ 15 MG IVP (21:12)
[2021-10-31] MEDS: metoclopramide 5 mg/mL SDV 2 mL 10 MG IVP (21:13)
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
[2021-10-31 22:22] VITALS: BP 129/70; PULSE 78; RESP 18; TEMP 37.1; O2SAT 99
== END 2021-10-31 22:24 | disposition home or self-care (01) ==
PROVIDERS: Emergency Provider Emergency Medicine; PCP Nurse Practitioner Family
DX: G43.909 Migraine, unspecified, not intractable, without status migrainosus (principal); F17.210 Nicotine dependence, cigarettes, uncomplicated
CPT/HCPCS: 70450; 96374; 96375; 99285; J1100; J1885; J2765

== ENCOUNTER 2021-12-07 11:00 | Oncology outpatient (recurring) (ONCR) | payer MEDICAID, SELFPAY ==
[2021-11-24 14:36] LABS: Basophils # 0.1 10^3/uL (0.0-0.1); Basophils % 0.6 %; Eosinophils # 0.4 10^3/uL (0.0-0.8); Eosinophils % 4.3 %; Hematocrit 43.9 % (37.0-47.0); Hemoglobin 14.4 g/dL (11.5-15.3); Lymphocytes # 2.2 10^3/uL (0.8-4.8); Mean Corpuscular HGB Conc 32.8 g/dL (30.0-36.0); Mean Corpuscular Hemoglobin 32.4 pg (28.0-34.0); Mean Corpuscular Volume 98.9 fl (81-99); Mean Platelet Volume 9.9 fL (7.4-10.4); Monocytes # 0.6 10^3/uL (0.2-0.9); Monocytes % 6.9 %; Neutrophils # 5.43 10^3/uL (1.8-7.7); Neutrophils % 62.9 %; Nucleated Red Blood Cells % 0 %; Platelet Count 329 10^3/cmm (130-400); Red Blood Count 4.44 10^6/uL (4.1-5.3); Red Cell Distribution Width 13.3 % (12.1-15.1); White Blood Count 8.6 10^3/uL (4.0-10.0)
[2021-11-24 15:27] LABS: D Dimer 0.28 ug/mIFEU (0-0.59)
[2021-11-24 16:05] LABS: Alanine Aminotransferase 8 U/L (0-33); Albumin Level 4.5 g/dL (3.5-5.2); Alkaline Phosphatase 62 IU/L (35-105); Anion Gap 13.3 (5-19); Aspartate Amino Transferase 13 U/L (0-32); Blood Urea Nitrogen 9 mg/dL (6-20); Calcium 8.8 mg/dL (8.5-10.5); Carbon Dioxide 23 mmol/L (22-29); Chloride 105 mmol/L (98-107); Globulin 2.7 g/dL (1.3-4.6); Glomerular Filtration Rate 111.9 mL/min (90-130); Glucose 102 mg/dL (65-115); Iron 24 ug/dL (37-145); Osmolality Calculated 283 mOsm/kg (285-295); Percent Saturation 8.8 % (20-50); Potassium 4.3 mmol/L (3.5-5.1); Sodium 137 mmol/L (136-145); Thyroid Stimulating Hormone 2.83 uIU/mL (0.27-4.20); Total Bilirubin 0.2 mg/dL (0.15-1.2); Total Iron Binding Capacity 271 mcg/dl; Total Protein 7.2 g/dL (6.6-8.7); Unsaturated Iron Binding 247 ug/dL (112-347); Vitamin B12 341 pg/mL (232-1245)
--- NOTE | 2021-12-07 11:00 | USCV_ITS ---
Lucero Martinez Age: 40 Gender: F : 1980 Exam Date: 12/07/2021 12:04 Ordering Phys: Bhargav Olivier MD Technologist: Juliann Mercedes Exam Location: [facility] [place] Indication: history DVT RUE HISTORY: History DVT in RUE, recently off blood thinner. Sent for recheck PROCEDURES: Venous duplex imaging was performed in only the right upper extremity. The following venous structures were evaluated: internal jugular vein, subclavian vein, axillary vein, and brachial veins. In addition, the basilic vein, cephalic vein, radial vein, and ulnar vein. FINDINGS: The right internal jugular vein is adequately visualized with no evidence of deep vein thrombosis. The right subclavian vein is adequately visualized with no evidence of deep vein thrombosis. The right axillary vein is adequately visualized with no evidence of deep vein thrombosis. The right brachial vein is adequately visualized with no evidence of deep vein thrombosis. The right basilic vein is adequately visualized with no evidence of superficial thrombophlebitis. The right cephalic vein is adequately visualized with no evidence of superficial thrombophlebitis. The right radial vein is adequately visualized with no evidence of deep vein thrombosis. The right ulnar vein is adequately visualized with no evidence of deep vein thrombosis. CONCLUSIONS No evidence for upper extremity deep venous thrombosis. Previously desribed thrombus RUE veins has resolved since 05/2021 Modesto Kapoor MD (Electronically Signed) Final Date: 07 December 2021 16:31 S
[2021-12-10 03:17] LABS: PROTEIN C, ACTIVITY 74 % (70-180)
[2021-12-10 03:32] LABS: Antithrombin III Activity 79 % normal (80-135)
[2021-12-10 11:52] LABS: B2 Glycoprotein I IGM AB 5.4 U/mL
[2021-12-10 12:06] LABS: Anti-Cardiolipin IgA AB <2.0 APL-U/mL
[2021-12-14 03:48] LABS: PROTEIN S, ACTIVITY 66 % normal (60-140)
[2021-12-17 23:52] LABS: PROTHROMBIN (FACTOR II) 20210G NEGATIVE
[2021-12-19 00:48] LABS: Factor 5 Leiden Mutation NEGATIVE
== END 2021-12-15 23:59 | disposition home or self-care (01) ==
LOC: ONCMED 12-16 06:56
PROVIDERS: PCP Nurse Practitioner Family; Visit Provider Internal Medicine Medical Oncology
DX: I82.621 Acute embolism and thrombosis of deep veins of right upper extremity (principal)
CPT/HCPCS: 36415; 80053; 81241; 82607; 83540; 83550; 84443; 85025; 85210; 85300; 85303; 85306; 85378; 86146; 86147; 93971; 99214

== ENCOUNTER 2022-01-21 12:52 | Emergency (ER) | payer MEDICAID, SELFPAY ==
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
[2022-01-21 12:52] VITALS: BP 124/56; PULSE 96; RESP 28; TEMP 36; O2SAT 99; BMI 19.1
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
--- NOTE | 2022-01-21 13:03 | XR_ITS ---
WS: [email or web address] XR ankle RT min 3V* [id number] REASON FOR EXAM: pain FINDINGS: Soft tissue swelling over the lateral malleolus. Joint spaces of the right ankle are intact and well preserved. No fracture is identified. XR/XR ankle RT min 3V* [id number] IMPRESSION: No acute abnormality.
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
--- NOTE | 2022-01-21 13:03 | XR_ITS ---
WS: [email or web address] XR forearm RT 2V [id number] REASON FOR EXAM: pain FINDINGS: The right radius and ulna are intact without fracture or other focal bone abnormality. No periosteal reaction.. No soft tissue abnormality is identified. XR/XR forearm RT 2V [id number] IMPRESSION: No acute abnormality.
--- NOTE | 2022-01-21 13:07 | ECG_ITS ---
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 Measurements Intervals [place] Rate: 85 P: 66 UT: 141 QRS: 81 QRSD: 82 T: 52 QT: 387 QTc: 462 Interpretive Statements SINUS RHYTHM No previous ECG available for comparison Electronically Signed On 01-21-2022 14:47:04 CDT by Abel Barahona M.D. [email or web address]
[2022-01-21] MEDS: fentaNYL 50 mcg/mL INJ 2mL IVP (13:11)
[2022-01-21] MEDS: ondansetron 2 mg/ML SDV 2 mL 4 MG IVP (13:11)
[2022-01-21] MEDS: iohexol 350 mg/mL 100 mL Btl IV (13:23)
--- NOTE | 2022-01-21 13:23 | PC.PHAR ---
Addendum entered by Beranne Gray 01/21/22 14:09: PT STATES THE ELIQUIS 5MG BID WAS DCED STATES NOT TAKEN SINCE OCTOBER 2021- Original Note: MEDICATIONS ENTERED ARE MEDS [facility] STATES THEY HAVE FILLED FOR THE PT-PER RAMSES FROM [facility] STATES THE PT IS SUPPOSE TO BE TAKING PROZAC 20MG DAILY LAST FILLED 07/02/21 30D/S STATES RX HAS REFILLS-NOTES ARE MADE IN THE PHARMACY COMMENTS WITH LAST FILL DATES AND D/S
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
[2022-01-21 13:45] LABS: Basophils # 0.1 10^3/uL (0.0-0.1); Basophils % 0.6 %; Eosinophils # 0.5 10^3/uL (0.0-0.8); Eosinophils % 4.8 %; Hematocrit 43.3 % (37.0-47.0); Hemoglobin 14.3 g/dL (11.5-15.3); Lymphocytes # 3.4 10^3/uL (0.8-4.8); Lymphocytes % 34.6 %; Mean Corpuscular Hemoglobin 32.9 pg (28.0-34.0); Mean Corpuscular Volume 99.8 fl (81-99); Monocytes # 0.5 10^3/uL (0.2-0.9); Monocytes % 5.3 %; Neutrophils # 5.39 10^3/uL (1.8-7.7); Neutrophils % 54.5 %; Nucleated Red Blood Cells % 0 %; Platelet Count 344 10^3/cmm (130-400); Red Blood Count 4.34 10^6/uL (4.1-5.3); Red Cell Distribution Width 12.9 % (12.1-15.1); White Blood Count 9.9 10^3/uL (4.0-10.0)
[2022-01-21 13:55] LABS: Potassium 4.1 mmol/L (3.5-5.1)
[2022-01-21 14:21] LABS: Alanine Aminotransferase 11 U/L (0-33); Albumin Level 4.2 g/dL (3.5-5.2); Alkaline Phosphatase 60 U/L (35-105); Anion Gap 24.1 (5-19); Aspartate Amino Transferase 21 U/L (0-32); Blood Urea Nitrogen 7 mg/dL (6-20); Carbon Dioxide 14 mmol/L (22-29); Chloride 102 mmol/L (98-107); Glomerular Filtration Rate 69.7 mL/min (90-130); Glucose 142 mg/dL (65-115); Osmolality Calculated 282 mOsm/kg (285-295); Sodium 136 mmol/L (136-145); Total Bilirubin 0.3 mg/dL (0.15-1.2); Total Protein 7.2 g/dL (6.6-8.7)
[2022-01-21 14:22] LABS: HCG, Serum Qual Negative (Negative)
[2022-01-21 14:39] VITALS: BP 124/74
[2022-01-21 15:09] VITALS: BP 118/70
--- NOTE | 2022-01-21 15:39 | DCPLANNER ---
Addendum entered by Deb Leyva 04/07/22 10:37: Patient had a follow up appointment scheduled with neurology - this appointment was rescheduled to a later date Addendum entered by Deb Leyva 02/02/22 15:38: Patient had a follow up appointment scheduled for 01.27.22 with ortho - patient did attend appointment. Patient has a follow up appointment scheduled for Monday, March 14, 2022 at 10:[address] Lorenzo at neurology. Clinic will call patient with appointment information. Original Note: residence manager had message to schedule a follow up appointment for patient with ortho. residence manager sent patients information to the front office staff at ortho. Patients information will be printed and reviewed. Clinic will call patient with appointment information. residence manager had message to schedule a follow up appointment for patient with neurology. residence manager sent patients information to the front office staff at neurology. Patients information will be printed and reviewed. Clinic will call patient with appointment information.
[2022-01-21 15:47] VITALS: BP 114/68; PULSE 78; RESP 16
[2022-01-21] MEDS: HYDROcodone-acetaminophen 5-325 mg Tablet 1 TAB PO (15:57)
[2022-01-21 16:08] VITALS: BP 114/68; PULSE 78; RESP 16; TEMP 36; O2SAT 99
== END 2022-01-21 16:11 | disposition home or self-care (01) ==
PROVIDERS: Emergency Provider Family Medicine; PCP Nurse Practitioner Family
DX: S42.292A Other displaced fracture of upper end of left humerus, initial encounter for closed fracture (principal); V48.0XXA Car driver injured in noncollision transport accident in nontraffic accident, initial encounter; G40.909 Epilepsy, unspecified, not intractable, without status epilepticus
CPT/HCPCS: 70450; 71260; 72125; 73030; 73060; 73090; 73110; 73610; 74177; 80053; 84703; 85025; 93005; 96374; 96375; 99285; J1953; J2405; J3010; Q9967

== ENCOUNTER → 2022-01-27 11:13 | Outpatient (BNVA) | payer MEDICAID, SELFPAY | PROVIDERS: PCP Family Medicine; Visit Provider Physician Assistant | DX: S42.212A Unspecified displaced fracture of surgical neck of left humerus, initial encounter for closed fracture (principal); V49.9XXA Car occupant (driver) (passenger) injured in unspecified traffic accident, initial encounter | CPT/HCPCS: 73030 ==

== ENCOUNTER 2022-01-27 15:52 | Outpatient (CLI) | payer MEDICAID, SELFPAY | END 2022-01-27 15:53 | disposition home or self-care (01) | LOC: SPT 15:53 | PROVIDERS: PCP Family Medicine; Visit Provider Physician Assistant | DX: Z46.89 Encounter for fitting and adjustment of other specified devices (principal); S42.292D Other displaced fracture of upper end of left humerus, subsequent encounter for fracture with routine healing; X58.XXXD Exposure to other specified factors, subsequent encounter | CPT/HCPCS: 97760; L3670 ==

== ENCOUNTER → 2022-02-03 09:14 | Outpatient (BNVA) | payer MEDICAID, SELFPAY | PROVIDERS: PCP Family Medicine; Visit Provider Physician Assistant | DX: S42.202D Unspecified fracture of upper end of left humerus, subsequent encounter for fracture with routine healing (principal); X58.XXXD Exposure to other specified factors, subsequent encounter; S42.292D Other displaced fracture of upper end of left humerus, subsequent encounter for fracture with routine healing | CPT/HCPCS: 73030 ==

== ENCOUNTER 2022-02-16 11:48 | Emergency (ER) | payer MEDICAID, SELFPAY ==
[2022-02-16 12:11] VITALS: BP 124/76; PULSE 116; RESP 16; TEMP 36.5; O2SAT 97; BMI 19.5
--- NOTE | 2022-02-16 12:16 | ED_ITS ---
HPI - Seizure General: Chief Complaint: Seizure Stated Complaint: Seizure Time Seen by Provider: 02/16/22 12:16 History of Present Illness: HPI Narrative: Ms. Martinez is a 41-year-old lady with significant past medical history of convulsions presenting to the emergency department due to seizure. She reports no history of prodrome with her convulsions and was sitting in a car when she apparently had a period of not responding followed by generalized tonic-clonic shaking. Additionally she had tongue biting and postevent confusion. Denies known recent changes in health that could precipitating event. Intensity of pain is primarily in the tongue is moderate. No other specific changes in health, exacerbating, or alleviating factors identified. Description of Episode: loss of consciousness, tonic-clonic movement and post- event confusion Witnessed: Yes - by Bystander Trauma: No Seizure History: Yes Place: Vehicle Possible Precipitating Event: none Review of Systems General: Reports: 10 or more systems reviewed and unremarkable except in HPI and below PFSH ED PFSH: Medical History Anxiety and depression Endometriosis History of deep vein thrombosis Right upper extremity deep vein thrombosis Seizure disorder Surgical History History of partial thyroidectomy Right hemithyroidectomy for benign nodule Status post laparoscopic surgery For endometriosis Family History Sister Clotting disorder, Onset Age: 25 Pulmonary embolism Diabetes Hypertension Grandmother CAD (coronary artery disease) Clotting disorder Multiple DVT Diabetes Hypertension Grandfather Cancer Brain Mother Hypertension Other Bleeding disorder Denies family history of Lung disease Stroke Social History Smoking and tobacco status: current every day smoker (1 ppd) Quit status (tobacco): considering quitting Alcohol intake: never Household members: children and other Details: Grandmother Housing: House Marital status: Number of children: 3 Female Reproductive History: Date of last menstrual period: 03/14/21 Para: 3 Spontaneous abortions: Yes Physical Exam Const: COMMON NORMALS: alert GENERAL APPEARANCE: cooperative and well developed HENMT: COMMON NORMALS: normocephalic and atraumatic HEAD & SCALP: normocephalic and atraumatic THROAT: posterior oropharynx normal OTHER: Tongue bite without active bleeding, right lateral to distal with clear indentations from teeth on top of tongue. Eye: COMMON NORMALS: conjunctivae normal CONJUNCTIVA: Yes conjunctivae normal SCLERA: sclerae normal Neck/C-Spine: COMMON NORMALS: supple GENERAL: Yes trachea midline Resp: COMMON NORMALS: normal respiratory effort EFFORT & INSPECTION: Yes able to speak in complete sentences Cardio: COMMON NORMALS: regular rate and regular rhythm RATE: regular rate RHYTHM: regular rhythm GI: COMMON NORMALS: Soft to palpation PALPATION: Yes Soft to palpation and No Tenderness to palpation present (GI) PERCUSSION: normal to percussion Extremity: GENERAL: Yes normal exam except as noted and No edema Neuro: COMMON NORMALS: moves all extremities SENSORIUM/ORIENTATION: Yes alert and No Orientation impaired Psych: COMMON NORMALS: mental status grossly normal and Normal thought process present THOUGHT PROCESS: Normal thought process present Course ED course: 41-year-old lady with history of seizures presenting for seizure- like activity. Mildly postictal appearing on exam however no focal neurologic deficits appreciated. Patient is nontoxic in appearance. Laboratory studies with unremarkable hematologic panel, metabolic panel likely consistent with seizure, prolactin levels mildly elevated. Urinalysis without evidence of typical urinary tract infection. Trichomonas discussed with patient and will be treated. Based on review of prior imaging including imaging from January as well as clin ical exam and provided history I do not feel that repeat imaging is required at this time. Patient improved with fluids, oral Ativan, and 500 mg additional dose of Keppra. Patient returned to normal mentation. Most likely etiology of patient's symptoms is seizure disorder. Plan to increase Keppra from 500 twice daily to 750 twice daily and have patient follow-up with neurology. The results of ED evaluation were discussed with the patient including prescriptions and/or symptomatic cares (if applicable) including appropriate and responsible use, seizure precautions, followup plan, and return precautions. The patient verbalized understanding and felt safe for discharge. Vital Signs: Vital signs: Vital Signs Temperature 97.7 F 02/16/22 12:11 Pulse Rate 73 02/16/22 14:14 Respiratory Rate 19 H 02/16/22 14:14 Blood Pressure 120/78 02/16/22 14:14 Pulse Oximetry 99 02/16/22 14:14 Oxygen Delivery Me thod 02/16/22 13:36 MDM - Seizure Medical Records Attestation: I reviewed the patient's medical records. Lab Data Attestation: I reviewed the patient's lab results. Result diagrams: 02/16/22 12:33 02/16/22 12:33 Labs: Laboratory Results WBC 8.0 10^3/uL (4.0-10.0) 02/16/22 12:33 RBC 4.28 10^6/uL (4.1-5.3) 02/16/22 12:33 Hgb 14.0 g/dL (11.5-15.3) 02/16/22 12:33 Hct 42.9 % (37.0-47.0) 02/16/22 12:33 MCV 100.2 fl (81-99) H 02/16/22 12:33 MCH 32.7 pg (28.0-34.0) 02/16/22 12:33 MCHC 32.6 g/dL (30.0-36.0) 02/16/22 12:33 RDW 14.1 % (12.1-15.1) 02/16/22 12:33 Plt Count 399 10^3/cmm (130-400) 02/16/22 12:33 MPV 8.9 fL (7.4-10.4) 02/16/22 12:33 Neut % (Auto) 68.4 % 02/16/22 12:33 Lymph % (Auto) 22.2 % 02/16/22 12:33 [place] % (Auto) 6.0 % 02/16/22 12:33 Eos % (Auto) 2.0 % 02/16/22 12:33 Baso % (Auto) 0.9 % 02/16/22 12:33 Neut # (Auto) 5.48 10^3/uL (1.8-7.7) 02/16/22 12:33 Lymph # (Auto) 1.8 10^3/uL (0.8-4.8) 02/16/22 12:33 [place] # (Auto) 0.5 10^3/uL (0.2-0.9) 02/16/22 12:33 Eos # (Auto) 0.2 10^3/uL (0.0-0.8) 02/16/22 12:33 Baso # (Auto) 0.1 10^3/uL (0.0-0.1) 02/16/22 12:33 Nucleated RBC % (auto) 0 % 02/16/22 12:33 Nucleated RBCs # 0.0 /100WBC 02/16/22 12:33 Sodium 135 mmol/L (136-145) L 02/16/22 12:33 Potassium 4.8 mmol/L (3.5-5.1) 02/16/22 12:33 Chloride 100 mmol/L (98-107) 02/16/22 12:33 Carbon Dioxide 18 mmol/L (22-29) L 02/16/22 12:33 Anion Gap 21.8 (5-19) H 02/16/22 12:33 BUN 8 mg/dL (6-20) 02/16/22 12:33 Creatinine 0.7 mg/dL (0.5-0.9) 02/16/22 12:33 GFR Calculation 93.2 mL/min (90-130) 02/16/22 12:33 Glucose 123 mg/dL (65-115) H 02/16/22 12:33 Calculated Osmolality 280 mOsm/kg (285-295) L 02/16/22 12:33 Calcium 9.7 mg/dL (8.5-10.5) 02/16/22 12:33 Total Bilirubin 0.7 mg/dL (0.15-1.2) 02/16/22 12:33 AST 20 U/L (0-32) 02/16/22 12:33 ALT 19 U/L (0-33) 02/16/22 12:33 Alkaline Phosphatase 83 U/L (35-105) 02/16/22 12:33 Total Protein 8.0 g/dL (6.6-8.7) 02/16/22 12:33 Albumin 5.0 g/dL (3.5-5.2) 02/16/22 12:33 Globulin 3.0 g/dL (1.3-4.6) 02/16/22 12:33 Prolactin 33.51 ng/mL (4.8-23.3) H 02/16/22 12:33 HCG, Qual Negative (Negative) 02/16/22 11:12 Urine Color Yellow (Yellow) 02/16/22 11:12 Urine Appearance Hazy (CLEAR) A 02/16/22 11:12 Urine pH 5 (5-7) 02/16/22 11:12 Ur Specific [place] 1.030 (1.005-1.030) 02/16/22 11:12 Urine Protein 1+ (Negative) H 02/16/22 11:12 Urine Glucose (UA) Norm (Normal) 02/16/22 11:12 Urine Ketones 2+ (Negative) H 02/16/22 11:12 Urine Blood 3+ (Negative) H 02/16/22 11:12 Urine Nitrate Negative (Negative) 02/16/22 11:12 Urine Bilirubin Neg (Negative) 02/16/22 11:12 Urine Urobilinogen Norm mg/dL (Negative) 02/16/22 11:12 Ur Leukocyte Esterase Negative (Negative) 02/16/22 11:12 Urine RBC 0-4 /hpf (0-2) H 02/16/22 11:12 Urine WBC 0-4 /hpf (0-5) H 02/16/22 11:12 Ur Squamous Epith Cells 0-4 /hpf (0-5) H 02/16/22 11:12 Amorphous Sediment Not Reportable 02/16/22 11:12 Urine Bacteria 1+ /hpf (NONE) H 02/16/22 11:12 Urine Trichomonas 2+ /hpf H 02/16/22 11:12 Discharge Plan Discharge Patient Disposition: Home Clinical Impression: Generalized seizure, infection, trichomonal Condition: Stable Prescriptions: New Keppra 250 mg tablet 250 mg PO BID Qty: 10 0RF Keppra 750 mg tablet 750 mg PO BID Qty: 60 0RF ondansetron 4 mg tablet,disintegrating 4 mg PO Q8H PRN (Reason: nausea and vomiting) Qty: 15 0RF metronidazole 500 mg tablet 500 mg PO BID 7 Days Qty: 14 0RF Discontinued levetiracetam [Keppra] 500 mg tablet 500 mg PO BID Qty: 60 0RF No Action (DME) left shoulder imobilizer See Rx Instructions .Route .MEDSUPPLY Qty: 1 0RF Rx Instructions: As directed tramadol 50 mg tablet 50 mg PO Q6H PRN (Reason: pain) Qty: 30 0RF Xanax 1 mg tablet 1 mg PO TID PRN (Reason: anxiety) Qty: 90 0RF tizanidine 4 mg capsule 4 mg PO Q8H PRN (Reason: muscle spasticity) Qty: 30 0RF prednisone 20 mg Tablet 40 mg PO DAILY Rx Instructions: FOR 5 DAYS (RX FILLED 01/11/22 NOT PICKED UP) albuterol sulfate [ProAir HFA] 90 mcg/actuation Hfa Aerosol Inhaler 2 puff INHALATION QID PRN (Reason: Shortness Of Breath) Discharge Orders: Discharge ED (Routine); Ordered 02/16/22 Ordered By: Jorge Luis Winslow Referrals: Asif Vargas, [Primary Care Provider] - Discharge Diet: Usual diet Discharge Activity: Limit activity as instructed Patient Instructions: Trichomoniasis (ED), Recurrent Seizures in Adults (ED) Activity Restrictions/Additional Instructions: Thank you for visiting the emergency department. You were seen and evaluated for seizure. The exact cause of your seizure is unclear though likely related to underlying seizure or other convulsion disorder. I will increase your Keppra from 500 mg twice daily to 750 mg twice daily. I will write you a prescription for 750 mg tablets and also 250 mg tablets so you may use the rest of your 500 mg tablets combined with the 250 mg tablets to equal 750 mg until you are out of the 500 mg tablets. Please follow-up with neurology. You were noted to have an infection as discussed which will be treated with antibiotics. Return to the emergency department for recurrent symptoms or anything else that you are concerned about a feel needs emergency department evaluation. Coding Level of Care Code ED Group Work Program Director for Angel Moscoso Exam Comprehensive
--- NOTE | 2022-02-16 12:19 | ECG_ITS ---
[facility] Test Date: 2022-02-16 Pat Name: Lucero Martinez Department: Room: Gender: Female Private Pilot: : 1980 Requested By: Jorge Luis Winslow Order Number: [id number] Harden MD: Kristina Hicks M.D. Measurements Intervals [place] Rate: 77 P: 83 ND: 144 QRS: 87 QRSD: 78 T: 75 QT: 395 QTc: 450 Interpretive Statements SINUS RHYTHM Compared to ECG 01/21/2022 13:07:21 No significant changes Electronically Signed On 02-16-2022 16:26:23 CDT by Kristina Hicks M.D. [id number]
[2022-02-16 12:37] VITALS: BP 111/69; PULSE 80; RESP 18; O2SAT 98
[2022-02-16 12:49] VITALS: PULSE 78; RESP 16; O2SAT 100
[2022-02-16 12:51] LABS: Basophils # 0.1 10^3/uL (0.0-0.1); Basophils % 0.9 %; Eosinophils # 0.2 10^3/uL (0.0-0.8); Hematocrit 42.9 % (37.0-47.0); Lymphocytes # 1.8 10^3/uL (0.8-4.8); Lymphocytes % 22.2 %; Mean Corpuscular HGB Conc 32.6 g/dL (30.0-36.0); Mean Corpuscular Hemoglobin 32.7 pg (28.0-34.0); Mean Corpuscular Volume 100.2 fl (81-99); Mean Platelet Volume 8.9 fL (7.4-10.4); Monocytes # 0.5 10^3/uL (0.2-0.9); Neutrophils # 5.48 10^3/uL (1.8-7.7); Neutrophils % 68.4 %; Nucleated Red Blood Cells % 0 %; Platelet Count 399 10^3/cmm (130-400); Red Blood Count 4.28 10^6/uL (4.1-5.3); Red Cell Distribution Width 14.1 % (12.1-15.1)
[2022-02-16] MEDS: sodium chloride 0.9% 1,000 ML 999 ML IV (13:07)
[2022-02-16 13:08] LABS: HCG Qualitative Urine. Negative (Negative)
[2022-02-16 13:09] LABS: Blood Urine 3+ (Negative); Glucose Urine UA Norm (Normal); Ketones Urine 2+ (Negative); Protein Urine 1+ (Negative); Urine Appearance Hazy (CLEAR); Urine Color Yellow (Yellow); pH Urine 5 (5-7)
[2022-02-16 13:10] LABS: Add Urine Microscopic? YES; Bilirubin Urine Neg (Negative); Leukocyte Esterase Urine Negative (Negative); Nitrate Urine Negative (Negative); Urobilinogen Urine Norm (Negative)
[2022-02-16] MEDS: LORazepam 0.5 mg Tablet PO (13:10)
[2022-02-16 13:14] LABS: Alanine Aminotransferase 19 U/L (0-33); Alkaline Phosphatase 83 U/L (35-105); Anion Gap 21.8 (5-19); Aspartate Amino Transferase 20 U/L (0-32); Blood Urea Nitrogen 8 mg/dL (6-20); Calcium 9.7 mg/dL (8.5-10.5); Carbon Dioxide 18 mmol/L (22-29); Chloride 100 mmol/L (98-107); Glomerular Filtration Rate 93.2 mL/min (90-130); Glucose 123 mg/dL (65-115); Osmolality Calculated 280 mOsm/kg (285-295); Potassium 4.8 mmol/L (3.5-5.1); Sodium 135 mmol/L (136-145); Total Bilirubin 0.7 mg/dL (0.15-1.2)
[2022-02-16 13:16] LABS: Add Urine Culture? Yes; Bacteria Urine 1+ /hpf; RBC Urine 0-4 /hpf (0-2); Squamous Epithelial Cell Urine 0-4 /hpf (0-5); Trichomonas Urine 2+ /hpf; WBC Urine 0-4 /hpf (0-5)
[2022-02-16 13:28] LABS: Prolactin 33.51 ng/mL (4.8-23.3)
[2022-02-16 13:36] VITALS: BP 117/91; PULSE 89; RESP 18; O2SAT 99
[2022-02-16 14:14] VITALS: BP 120/78; PULSE 73; RESP 19; O2SAT 99
== END 2022-02-16 14:16 | disposition home or self-care (01) ==
PROVIDERS: Emergency Provider Emergency Medicine; PCP Family Medicine
DX: G40.89 Other seizures (principal); A59.00 Urogenital trichomoniasis, unspecified; F17.210 Nicotine dependence, cigarettes, uncomplicated
CPT/HCPCS: 80053; 81001; 81025; 84146; 85025; 87086; 93005; 96365; 99284; J1953; J7030

== ENCOUNTER → 2022-02-22 08:56 | Outpatient (BNVA) | payer MEDICAID, SELFPAY | PROVIDERS: PCP Family Medicine; Visit Provider Physician Assistant | DX: S42.202D Unspecified fracture of upper end of left humerus, subsequent encounter for fracture with routine healing (principal); V89.2XXD Person injured in unspecified motor-vehicle accident, traffic, subsequent encounter | CPT/HCPCS: 73030 ==

== ENCOUNTER → 2022-04-26 15:39 | Outpatient (BNVA) | payer MEDICAID, SELFPAY | PROVIDERS: PCP Family Medicine; Visit Provider Physician Assistant | DX: S42.292A Other displaced fracture of upper end of left humerus, initial encounter for closed fracture (principal); V49.9XXA Car occupant (driver) (passenger) injured in unspecified traffic accident, initial encounter; Y93.89 Activity, other specified | CPT/HCPCS: 73030 ==

== ENCOUNTER → 2022-07-25 09:25 | Outpatient (BNVA) | payer MEDICAID, SELFPAY | PROVIDERS: PCP Family Medicine; Visit Provider Family Medicine | DX: R39.9 Unspecified symptoms and signs involving the genitourinary system (principal) | CPT/HCPCS: 81000; 87086 ==

== ENCOUNTER 2022-09-16 19:32 | Emergency (ER) | payer MEDICAID, SELFPAY ==
[2022-09-16 20:03] VITALS: BP 117/80; PULSE 89; RESP 15; TEMP 36.9; O2SAT 94
[2022-09-16 21:00] VITALS: BP 95/58; PULSE 63; RESP 16; O2SAT 97
--- NOTE | 2022-09-16 21:06 | W.ED.SEIZURE ---
HPI - Seizure General: Chief Complaint: Seizure Stated Complaint: seizures Time Seen by Provider: 09/16/22 21:06 History of Present Illness: HPI Narrative: Ms. Flores is a 41-year-old lady with significant past medical history of epilepsy presenting to the emergency department for seizure with headache. She notes 2 absence seizures witnessed by family today. Denies known precipitating or provoking events. She has been compliant with her medication regimen. Currently complains of right-sided headache which is typical after seizures for her. No other specific changes in health, exacerbating, or alleviating factors identified. Description of Episode: other Witnessed: Yes - by Bystander Trauma: No Seizure History: Yes Place: Home Review of Systems General: Reports: 10 or more systems reviewed and unremarkable except in HPI and below PFSH ED PFSH: Medical History Anxiety and depression Endometriosis History of deep vein thrombosis Right upper extremity deep vein thrombosis Seizure disorder Surgical History History of partial thyroidectomy Right hemithyroidectomy for benign nodule Status post laparoscopic surgery For endometriosis Family History Sister Clotting disorder, Onset Age: 25 Pulmonary embolism Diabetes Hypertension Grandmother CAD (coronary artery disease) Clotting disorder Multiple DVT Diabetes Hypertension Grandfather Cancer Brain Mother Hypertension Other Bleeding disorder Denies family history of Lung disease Stroke Social History Smoking and tobacco status: current every day smoker Quit status (tobacco): considering quitting Alcohol intake: never Substance/Drug Use: current Household members: children and other Details: Grandmother Housing: House Marital status: Number of children: 3 Female Reproductive History: Para: 3 Spontaneous abortions: Yes Physical Exam Const: COMMON NORMALS: alert GENERAL APPEARANCE: cooperative and well developed HENMT: COMMON NORMALS: normocephalic and atraumatic HEAD & SCALP: normocephalic and atraumatic Eye: COMMON NORMALS: conjunctivae normal CONJUNCTIVA: Yes conjunctivae normal SCLERA: sclerae normal Neck/C-Spine: COMMON NORMALS: supple GENERAL: Yes trachea midline Resp: COMMON NORMALS: clear to auscultation bilaterally EFFORT & INSPECTION: Yes able to speak in complete sentences AUSCULTATION: clear to auscultation bilaterally Cardio: COMMON NORMALS: regular rate and regular rhythm RATE: regular rate RHYTHM: regular rhythm GI: COMMON NORMALS: Soft to palpation PALPATION: Yes Soft to palpation and No Tenderness to palpation present (GI) PERCUSSION: normal to percussion Extremity: GENERAL: Yes normal exam except as noted and No edema Neuro: COMMON NORMALS: moves all extremities SENSORIUM/ORIENTATION: Yes alert and No Orientation impaired Psych: COMMON NORMALS: mental status grossly normal and Normal thought process present THOUGHT PROCESS: Normal thought process present Course Vital Signs: Vital signs: Vital Signs Temperature 98.4 F 09/16/22 20:03 Pulse Rate 62 09/16/22 22:30 Respiratory Rate 16 09/16/22 22:30 Blood Pressure 95/60 09/16/22 22:30 Pulse Oximetry 100 09/16/22 22:30 Oxygen Delivery Me thod Room Air 09/16/22 21:00 MDM - Seizure MDM Narrative Medical decision making narrative: 41-year-old lady with seizure disorder presenting due to seizures. Typically seizures are well controlled. Patient has typical headache associated with seizure. No focal neurologic deficits. She is nontoxic. No meningismus. Labs with essentially unremarkable hematologic and metabolic panel. hCG negative. Valproic acid level appears therapeutic. Given exam and provided clinical history no indication for imaging at this time. Patient treated for headache with significant improvement. Plan for outpatient neurology follow-up. The results of ED evaluation were discussed with the patient including prescriptions and/or symptomatic cares (if applicable) including appropriate and responsible use, followup plan, and return precautions. The patient verbalized understanding and felt safe for discharge. Medical Records Attestation: I reviewed the patient's medical records. Lab Data Attestation: I reviewed the patient's lab results. 09/16/22 21:12 09/16/22 21:12 Labs: Laboratory Results WBC 10.1 10^3/uL (4.0-10.0) H 09/16/22 21:12 RBC 3.90 10^6/uL (4.1-5.3) L 09/16/22 21:12 Hgb 13.0 g/dL (11.5-15.3) 09/16/22 21:12 Hct 38.2 % (37.0-47.0) 09/16/22 21:12 MCV 97.9 fl (81-99) 09/16/22 21:12 MCH 33.3 pg (28.0-34.0) 09/16/22 21:12 MCHC 34.0 g/dL (30.0-36.0) 09/16/22 21:12 RDW 13.9 % (12.1-15.1) 09/16/22 21:12 Plt Count 242 10^3/cmm (130-400) 09/16/22 21:12 MPV 9.3 fL (7.4-10.4) 09/16/22 21:12 Neut % (Auto) 54.8 % 09/16/22 21:12 Lymph % (Auto) 32.3 % 09/16/22 21:12 [place] % (Auto) 6.8 % 09/16/22 21:12 Eos % (Auto) 5.2 % 09/16/22 21:12 Baso % (Auto) 0.6 % 09/16/22 21:12 Neut # (Auto) 5.52 10^3/uL (1.8-7.7) 09/16/22 21:12 Lymph # (Auto) 3.3 10^3/uL (0.8-4.8) 09/16/22 21:12 [place] # (Auto) 0.7 10^3/uL (0.2-0.9) 09/16/22 21:12 Eos # (Auto) 0.5 10^3/uL (0.0-0.8) 09/16/22 21:12 Baso # (Auto) 0.1 10^3/uL (0.0-0.1) 09/16/22 21:12 Nucleated RBC % (auto) 0 % 09/16/22 21:12 Nucleated RBCs # 0.0 /100WBC 09/16/22 21:12 Sodium 140 mmol/L (136-145) 09/16/22 21:12 Potassium 3.5 mmol/L (3.5-5.1) 09/16/22 21:12 Chloride 105 mmol/L (98-107) 09/16/22 21:12 Carbon Dioxide 24 mmol/L (22-29) 09/16/22 21:12 Anion Gap 14.5 (5-19) 09/16/22 21:12 BUN 10 mg/dL (6-20) 09/16/22 21:12 Creatinine 0.6 mg/dL (0.5-0.9) 09/16/22 21:12 GFR Calculation 111.3 mL/min (90-130) 09/16/22 21:12 Glucose 95 mg/dL (65-115) 09/16/22 21:12 Calculated Osmolality 289 mOsm/kg (285-295) 09/16/22 21:12 Calcium 8.3 mg/dL (8.5-10.5) L 09/16/22 21:12 Total Bilirubin 0.4 mg/dL (0.15-1.2) 09/16/22 21:12 AST 11 U/L (0-32) 09/16/22 21:12 ALT 7 U/L (0-33) 09/16/22 21:12 Alkaline Phosphatase 46 U/L (35-105) 09/16/22 21:12 Total Protein 6.3 g/dL (6.6-8.7) L 09/16/22 21:12 Albumin 3.9 g/dL (3.5-5.2) 09/16/22 21:12 Globulin 2.4 g/dL (1.3-4.6) 09/16/22 21:12 TSH 2.63 uIU/mL (0.27-4.20) 09/16/22 21:12 HCG, Qual Negative (Negative) 09/16/22 21:12 Valproic Acid 70.9 ug/mL (50-100) 09/16/22 21:12 Discharge Plan Discharge Patient Disposition: Home Clinical Impression: Recurrent seizures, Headache Condition: Stable Prescriptions: New Reglan 10 mg tablet 10 mg PO Q6H PRN (Reason: headache) Qty: 20 0RF No Action escitalopram oxalate 10 mg tablet 10 mg PO DAILY Qty: 30 1RF divalproex [Depakote ER] 250 mg tablet extended release 24 hr 1,250 mg PO DAILY Qty: 180 5RF Xanax 1 mg tablet 0.5 mg PO BID PRN (Reason: anxiety) Qty: 60 1RF Discharge Orders: Discharge ED (Routine); Ordered 09/16/22 Ordered By: Jorge Luis Winslow Referrals: Asif Vargas, [Primary Care Provider] - Discharge Diet: Usual diet Discharge Activity: Limit activity as instructed Patient Instructions: Metoclopramide (By mouth), Acute Headache (ED), Recurrent Seizures in Adults (ED) Activity Restrictions/Additional Instructions: Thank you for visiting the emergency department. You were seen and evaluated for seizure and headache. The most likely cause of your symptoms is related to underlying seizure disorder. We are pleased that you had improvement in the emergency department with treatment. Please follow-up with your neurologist. Please follow all seizure restrictions/precautions as discussed. Return to the emergency department for any new neurologic symptoms, recurrent seizures, or anything else that you are concerned about and feel needs emergency department evaluation. Coding Level of Care Code ED Blue Split Trimmer for Angel Moscoso
[2022-09-16 21:26] LABS: Basophils # 0.1 10^3/uL (0.0-0.1); Basophils % 0.6 %; Eosinophils # 0.5 10^3/uL (0.0-0.8); Eosinophils % 5.2 %; Hematocrit 38.2 % (37.0-47.0); Lymphocytes # 3.3 10^3/uL (0.8-4.8); Lymphocytes % 32.3 %; Mean Corpuscular Hemoglobin 33.3 pg (28.0-34.0); Mean Corpuscular Volume 97.9 fl (81-99); Mean Platelet Volume 9.3 fL (7.4-10.4); Monocytes # 0.7 10^3/uL (0.2-0.9); Monocytes % 6.8 %; Neutrophils # 5.52 10^3/uL (1.8-7.7); Neutrophils % 54.8 %; Nucleated Red Blood Cells % 0 %; Platelet Count 242 10^3/cmm (130-400); Red Cell Distribution Width 13.9 % (12.1-15.1); White Blood Count 10.1 10^3/uL (4.0-10.0)
[2022-09-16] MEDS: lactated ringers 1,000 ML 999 ML IV (21:30)
[2022-09-16] MEDS: metoclopramide 5 mg/mL SDV 2 mL 10 MG IVP (21:30)
[2022-09-16] MEDS: diphenhydrAMINE 50 mg/mL SDV 1mL 25 MG IVP (21:33)
[2022-09-16] MEDS: ketorolac 30 mg/mL INJ 15 MG IVP (21:34)
[2022-09-16 21:41] LABS: HCG, Serum Qual Negative (Negative)
[2022-09-16 21:43] LABS: Valproic Acid Level 70.9 ug/mL (50-100)
[2022-09-16 21:53] LABS: Alanine Aminotransferase 7 U/L (0-33); Albumin Level 3.9 g/dL (3.5-5.2); Alkaline Phosphatase 46 U/L (35-105); Anion Gap 14.5 (5-19); Aspartate Amino Transferase 11 U/L (0-32); Blood Urea Nitrogen 10 mg/dL (6-20); Calcium 8.3 mg/dL (8.5-10.5); Carbon Dioxide 24 mmol/L (22-29); Chloride 105 mmol/L (98-107); Globulin 2.4 g/dL (1.3-4.6); Glomerular Filtration Rate 111.3 mL/min (90-130); Glucose 95 mg/dL (65-115); Osmolality Calculated 289 mOsm/kg (285-295); Potassium 3.5 mmol/L (3.5-5.1); Sodium 140 mmol/L (136-145); Thyroid Stimulating Hormone 2.63 uIU/mL (0.27-4.20); Total Bilirubin 0.4 mg/dL (0.15-1.2); Total Protein 6.3 g/dL (6.6-8.7)
[2022-09-16 22:30] VITALS: BP 95/60; PULSE 62; RESP 16; O2SAT 100
== END 2022-09-16 22:30 | disposition home or self-care (01) ==
PROVIDERS: Emergency Provider Emergency Medicine; PCP Family Medicine
DX: G40.909 Epilepsy, unspecified, not intractable, without status epilepticus (principal); R51.9 Headache, unspecified; F17.210 Nicotine dependence, cigarettes, uncomplicated
CPT/HCPCS: 80053; 80164; 84443; 84703; 85025; 96374; 96375; 99284; J1200; J1885; J2765; J7120

== ENCOUNTER 2022-09-20 06:53 | Outpatient (CLI) | payer MEDICAID, SELFPAY ==
--- NOTE | 2022-09-20 07:04 | MR_ITS ---
WS: [id number] MRI BRAIN WITHOUT CONTRAST HISTORY: R51.9 - Headache, unspecified COMPARISON: 07/24/2020 TECHNIQUE: Diffusion imaging, multiplanar T1, T2 and FLAIR imaging obtained. No evidence for acute infarct or hemorrhage. Griffiths-white matter differentiation is normal. High-resolu tion imaging through the temporal lobes demonstrates no interval change or abnormality identified. Sy mmetric amount of CSF surrounding the hippocampal formations with no atrophy. No remote or acute infarcts are volume loss. Ventricles and extra-axial spaces are normal. No inferior displacement of cerebellar tonsils. The sella turcica and pituitary gland are unremarkabl e. Slight posterior tilting odontoid tip. Mild encroachment upon the ventral cervical cord. Dural venous sinuses and [place] of [place] demonstrate no abnormality on this unenhanced studies. Paranasal sinuses: Diffuse mucoperiosteal thickening throughout the sinus cavities. Mild progression since the prior exam. Additional small probable mucous retention cyst in the LEFT maxillary sinus. No air-fluid levels. No expansion of the sinus cavities. Mastoid air cells: Normal. Calvarium and scalp: Intact. MR/MR head wo con* [id number] IMPRESSION: 1. No acute infarct or hemorrhage. 2. Stable and symmetric appearance of the hippocampal formations. 3. No prior infarcts. 4. Mild diffuse mucoperiosteal thickening. Mild progression since 2020.
== END 2022-09-20 06:54 | disposition home or self-care (01) ==
LOC: RAD 06:54
PROVIDERS: PCP Family Medicine; Visit Provider Specialist
DX: R51.9 Headache, unspecified (principal); G40.909 Epilepsy, unspecified, not intractable, without status epilepticus
CPT/HCPCS: 70551

== ENCOUNTER 2022-09-23 17:06 | Outpatient (CLI) | payer MEDICAID, SELFPAY ==
[2022-09-23 18:05] LABS: Alanine Aminotransferase 6 U/L (0-33); Aspartate Amino Transferase 11 U/L (0-32); Gamma Glutamyl Transferase 11 U/L (5-36); Lactate Dehydrogenase 123 U/L (135-214)
[2022-09-23 20:34] LABS: Valproic Acid Level 80.5 ug/mL (50-100)
== END 2022-09-23 17:07 | disposition home or self-care (01) ==
PROVIDERS: PCP Family Medicine; Visit Provider Specialist
DX: G40.909 Epilepsy, unspecified, not intractable, without status epilepticus (principal)
CPT/HCPCS: 80164; 82977; 83615; 84450; 84460

== ENCOUNTER 2023-01-11 14:49 | Oncology outpatient (recurring) (ONCR) | payer MEDICAID, SELFPAY | END 2023-01-14 23:59 | disposition home or self-care (01) | PROVIDERS: PCP Family Medicine; Visit Provider Internal Medicine Medical Oncology | DX: I82.621 Acute embolism and thrombosis of deep veins of right upper extremity (principal); U09.9 Post COVID-19 condition, unspecified; R53.83 Other fatigue; E61.1 Iron deficiency; Z79.899 Other long term (current) drug therapy; F17.210 Nicotine dependence, cigarettes, uncomplicated ==

== ENCOUNTER → 2023-02-13 09:54 | Outpatient (BNVA) | payer MEDICAID, SELFPAY | PROVIDERS: PCP Family Medicine; Visit Provider Specialist | DX: G40.802 Other epilepsy, not intractable, without status epilepticus (principal) | CPT/HCPCS: 36415; 80164 ==

== ENCOUNTER 2023-10-16 19:53 | Emergency (ER) | payer MEDICAID, SELFPAY ==
[2023-10-16 19:57] VITALS: BP 145/97; PULSE 66; RESP 18; TEMP 36.6; O2SAT 96; BMI 21.2
--- NOTE | 2023-10-16 20:02 | ED_ITS ---
HPI - Seizure General: Chief Complaint: Seizure Stated Complaint: Possible Seizure Time Seen by Provider: 10/16/23 19:59 Source: patient and EMS Mode of arrival: EMS Limitations: no limitations History of Present Illness: HPI Narrative: 42-year-old female who is here from [facility] and had a possible seizure just prior to arrival. Patient has a history of seizures states she has been taking her Depakote. EMS states when they arrived she is awake alert she is answering my question appropriately states she has a migraine which is typical after her seizures. She denies hitting her head has no other complaints this time Seizure History: Yes Associated symptoms: Deny chest pain, chills or fever(s) Review of Systems Const: Denies: fever(s), chills, body aches or change in appetite Eyes: Denies: blurry vision or eye discomfort ENMT: Denies: throat pain or dental pain Card: Denies: chest pain Resp: Denies: dyspnea GI: Denies: abdominal pain, nausea, vomiting or diarrhea Musc: Denies: neck pain or back pain Neuro: Reports: headache(s) and seizure-like activity PFSH ED PFSH: Medical History Anxiety and depression History of deep vein thrombosis Right upper extremity deep vein thrombosis Seizure disorder Endometriosis Surgical History Status post laparoscopic surgery For endometriosis History of partial thyroidectomy Right hemithyroidectomy for benign nodule Family History Sister Clotting disorder, Onset Age: 25 Pulmonary embolism Diabetes Hypertension Grandmother CAD (coronary artery disease) Clotting disorder Multiple DVT Diabetes Hypertension Grandfather Cancer Brain Mother Hypertension Other Bleeding disorder Denies family history of Lung disease Stroke Social History Smoking and tobacco/nicotine status: current every day tobacco/nicotine user cigarettes Packs smoked per day: 0.5 Years cigarettes smoked: 20 Quit status (tobacco/nicotine): considering quitting Alcohol intake: never Substance/Drug Use: current Household members: children and other Details: Grandmother Housing: House Marital status: Number of children: 3 Female Reproductive History: Date of last menstrual period: 10/04/23 Para: 3 Spontaneous abortions: Yes Physical Exam Const: COMMON NORMALS: no acute distress, patient oriented x3 and healthy appearing HENMT: COMMON NORMALS: normocephalic and atraumatic HEAD & SCALP: normocephalic and atraumatic Neck/C-Spine: COMMON NORMALS: full ROM and supple Chest: COMMONS NORMALS: normal inspection of the chest Resp: COMMON NORMALS: normal respiratory effort Cardio: COMMON NORMALS: regular rate, regular rhythm and No murmurs present (Cardio) RATE: regular rate RHYTHM: regular rhythm Extremity: COMMON NORMALS: normal to inspection and full ROM Neuro: COMMON NORMALS: patient oriented x3, moves all extremities and no focal motor deficits Psych: COMMON NORMALS: mental status grossly normal, Normal thought process present and cooperative THOUGHT PROCESS: Normal thought process present Skin: COMMON NORMALS: no rashes or lesions noted and no wounds GENERAL SKIN EXAM: no rashes or lesions noted Course Vital Signs: Vital signs: Vital Signs Temperature 97.8 F 10/16/23 19:57 Pulse Rate 59 L 10/16/23 20:31 Respiratory Rate 15 10/16/23 20:31 Blood Pressure 126/74 10/16/23 20:31 Pulse Oximetry 94 10/16/23 20:31 Oxygen Delivery Me thod Room Air 10/16/23 20:31 MDM - Seizure MDM Narrative Medical decision making narrative: Patient presents here after a seizure she had been well-appearing here she has a history of seizures no signs of head injury her Depakote level was low did give her oral Depakote here she is to take her meds as prescribed she stable for discharge back to [facility] Lab Data Labs: Laboratory Results Valproic Acid 2.8 ug/mL (50-100) L 10/16/23 18:37 No radiology studies performed this visit Discharge Plan Discharge Patient Disposition: Home Clinical Impression: Generalized seizure Condition: Stable Prescriptions: No Action cenobamate 200 mg tablet 200 mg PO DAILY Qty: 30 5RF Rx Instructions: start week 11 of therapy Emgality Syringe 120 mg/mL syringe 120 mg SUBCUT ONCE Qty: 1 5RF fluconazole [Diflucan] 100 mg tablet 100 mg PO DAILY Qty: 5 0RF cenobamate 12.5 mg (14)- 25 mg (14) tablets,dose pack See Rx Instructions PO PER PKG DIR Qty: 28 0RF Rx Instructions: PO PER PKG DIR cenobamate 50 mg (14)- 100 mg (14) tablets,dose pack See Rx Instructions PO PER PKG DIR Qty: 28 0RF Rx Instructions: after first month cenobamate 100 mg tablet 100 mg PO DAILY 30 Days Qty: 30 3RF Rx Instructions: administer weeks 7 and 8 of therapy and ongoing propranolol 20 mg tablet See Rx Instructions .ROUTE .COMPLEX Qty: 60 3RF Dose Instruction: TAKE ONE TABLET BY MOUTH TWICE DAILY Rx Instructions: TAKE ONE TABLET BY MOUTH TWICE DAILY clonazepam 1 mg tablet 1 mg PO BID Qty: 60 3RF divalproex 250 mg tablet extended release 24 hr See Rx Instructions .ROUTE .COMPLEX Qty: 630 0RF Dose Instruction: TAKE 5 TABLETS BY MOUTH EVERY DAY Rx Instructions: TAKE 5 TABLETS BY MOUTH EVERY DAY Discharge Orders: Discharge ED (Routine); Ordered 10/16/23 Ordered By: Kelly Dao Referrals: Asif Vargas, [Primary Care Provider] - 4-7 days Discharge Diet: Advance as tolerated Discharge Activity: Resume usual activity Patient Instructions: Recurrent Seizures in Adults (ED) Coding Level of Care Code ED [employer] Utility Worker for Angel Moscoso
[2023-10-16] MEDS: diphenhydrAMINE 50 mg/mL SDV 1mL IVP (20:11)
[2023-10-16] MEDS: metoclopramide 5 mg/mL SDV 2 mL 10 MG IVP (20:14)
[2023-10-16 20:19] VITALS: BP 145/97; PULSE 64; RESP 14; O2SAT 96
[2023-10-16 20:31] VITALS: BP 126/74; PULSE 59; RESP 15; O2SAT 94
[2023-10-16 20:37] LABS: Valproic Acid Level 2.8 ug/mL (50-100)
[2023-10-16] MEDS: divalproex ER 500 mg Tablet (24H) PO (20:54)
== END 2023-10-16 20:59 | disposition home or self-care (01) ==
PROVIDERS: Emergency Provider Emergency Medicine; PCP Family Medicine
DX: G40.409 Other generalized epilepsy and epileptic syndromes, not intractable, without status epilepticus (principal); F17.210 Nicotine dependence, cigarettes, uncomplicated
CPT/HCPCS: 80164; 96374; 96375; 99284; J1200; J2765

== ENCOUNTER → 2024-02-29 10:37 | Outpatient (BNVA) | payer MEDICAID, SELFPAY | PROVIDERS: PCP Family Medicine; Visit Provider Nurse Practitioner | DX: R50.9 Fever, unspecified (principal) | CPT/HCPCS: 87071; 87400; 87880 ==

== ENCOUNTER 2024-08-10 04:47 | Emergency (ER) | payer MEDICAID, SELFPAY ==
[2024-08-10 04:56] VITALS: BP 144/91; PULSE 106; RESP 20; TEMP 36.6; O2SAT 99; BMI 26.5
[2024-08-10 05:04] VITALS: BP 144/91; PULSE 109; RESP 22; O2SAT 99
== END 2024-08-10 05:46 | disposition left against medical advice (07) ==
PROVIDERS: Emergency Provider Family Medicine; PCP Family Medicine
DX: Z53.21 Procedure and treatment not carried out due to patient leaving prior to being seen by health care provider (principal)